=== PATIENT | male | born 1960 | race Hispanic/Latino ===

== ENCOUNTER 2021-03-30 14:07 | Inpatient (IN) | payer BC, OTHER ==
[2021-03-30] MEDS ORDERED: NITROGLYCERIN 0.4 MG TAB SUBL SL ONE (14:19)
--- NOTE | 2021-03-30 14:21 | Emergency Department Report ---
ED Chest Pain HPI - General Stated Complaint: CHEST PAIN Time Seen by Provider: 03/30/21 14:19 - History of Present Illness Initial Comments: Patient presents by EMS secondary to chest pain. He is describing a substernal chest pain that is tight. He has associated shortness of breath with this. He states that he has been having intermittent episodes for the last couple of days, but today was worse and constant. EMS has administered aspirin and nitro with partial symptomatic improvement. There is no history of recent travel or trauma. He states that he has similar symptoms to this in 2003 when he required a cardiac stent. The only thing different from that time versus today was that his left arm was numb that time. He has no left arm numbness today. There is no recent travel or trauma. He has no pain or swelling in the extremities out of the ordinary. He has no cough or congestion. - Related Data Home Medications Medication Instructions Recorded Confirmed Last Taken Cyclobenzaprine HCl [FLEXERIL] 10 mg PO BID 02/22/13 06/19/13 06/19/13 09:00 Hydrocodone Bit/Acetaminophen 1 tab PO BID 02/22/13 06/20/13 06/19/13 09:00 [Lortab 10-500 mg] Multivitamin [Multi-Vitamin Daily] 1 tab PO QDAY 02/22/13 06/19/13 06/19/13 09:00 [place]-3/Dha/Epa/Fish Oil [Fish Oil 1,000 mg PO BID 02/22/13 06/19/13 02/22/13 Dr 500 mg Softgel] Sennosides/Docusate Sodium [Stool 100 mg PO BID 02/22/13 06/19/13 06/19/13 09:00 Softener-Stim Lax Tablet] Previous Rx's Medication Instructions Recorded Last Taken Type Clopidogrel Bisulfate [Plavix] 75 mg PO QPM #30 tablet 06/26/13 Unknown Rx Furosemide [Lasix] 20 mg PO DAILY #30 tablet 06/26/13 Unknown Rx Insulin Glargine,Hum.rec.anlog 50 unit SQ QHS #100 ml 06/26/13 Unknown Rx [Lantus VIAL] Insulin Regular, Human [HumuLIN R] 12 units SUB-Q ACHS #100 ml 06/26/13 Unknown Rx Potassium Chloride [K-Dur] 20 meq PO QDAY #30 tablet 06/26/13 Unknown Rx Ranitidine HCl [Zantac 75 MG TAB] 150 mg PO BID #30 tablet 06/26/13 Unknown Rx Rosuvastatin (Nf) [Crestor] 20 mg PO QPM #30 tablet 06/26/13 Unknown Rx carvediloL [Coreg] 6.25 tab PO BID #60 tablet 06/26/13 Unknown Rx lisinopriL [Zestril TAB] 5 mg PO QDAY #30 tablet 06/26/13 Unknown Rx Allergies Allergy/AdvReac Type Severity Reaction Status Date / Time No Known Allergies Allergy Verified 02/22/13 21:48 Heart Score - HEART Score History: Moderately suspicious EKG: Normal Age: 45-65 Risk factors: > 3 risk factors or hx of atherosclerotic disease Troponin: 1-3x normal limit HEART Score: 5 - EKG Read Time Time EKG Completed: 14:36 EKG Read Time: 14:38 ED Review of Systems ROS: Stated complaint: CHEST PAIN Other details as noted in HPI Comment: All other systems reviewed and negative Constitutional: denies: fever Eyes: denies: eye pain ENT: denies: throat pain Respiratory: denies: cough Cardiovascular: as per HPI Endocrine: denies: unexplained weight loss Gastrointestinal: denies: abdominal pain Genitourinary: denies: dysuria Musculoskeletal: denies: back pain Skin: denies: rash Neurological: denies: headache Hematological/Lymphatic: denies: easy bruising ED Past Medical Hx - Past Medical History Hx Hypertension: Yes Hx Heart Attack/AMI: Yes Hx Congestive Heart Failure: No Hx Diabetes: Yes Hx Deep Vein Thrombosis: (Uncertain) Hx Arthritis: Yes Hx Asthma: No Hx COPD: No Hx HIV: No - Surgical History Hx Pacemaker: No Hx Internal Defibrillator: No Additional Surgical History: fatty tumor removed - Family History Family history: hypertension - Social History Smoking Status: Never Smoker - Medications Home Medications: Home Medications Medication Instructions Recorded Confirmed Last Taken Type Cyclobenzaprine HCl [FLEXERIL] 10 mg PO BID 02/22/13 06/19/13 06/19/13 09:00 History Hydrocodone Bit/Acetaminophen 1 tab PO BID 02/22/13 06/20/13 06/19/13 09:00 History [Lortab 10-500 mg] Multivitamin [Multi-Vitamin Daily] 1 tab PO QDAY 02/22/13 06/19/13 06/19/13 09:00 History [place]-3/Dha/Epa/Fish Oil [Fish Oil 1,000 mg PO BID 02/22/13 06/19/13 02/22/[address] 500 mg Softgel] Sennosides/Docusate Sodium [Stool 100 mg PO BID 02/22/13 06/19/13 06/19/13 09:00 History Softener-Stim Lax Tablet] Clopidogrel Bisulfate [Plavix] 75 mg PO QPM #30 tablet 06/26/13 Unknown Rx Furosemide [Lasix] 20 mg PO DAILY #30 tablet 06/26/13 Unknown Rx Insulin Glargine,Hum.rec.anlog 50 unit SQ QHS #100 ml 06/26/13 Unknown Rx [Lantus VIAL] Insulin Regular, Human [HumuLIN R] 12 units SUB-Q ACHS #100 ml 06/26/13 Unknown Rx Potassium Chloride [K-Dur] 20 meq PO QDAY #30 tablet 06/26/13 Unknown Rx Ranitidine HCl [Zantac 75 MG TAB] 150 mg PO BID #30 tablet 06/26/13 Unknown Rx Rosuvastatin (Nf) [Crestor] 20 mg PO QPM #30 tablet 06/26/13 Unknown Rx carvediloL [Coreg] 6.25 tab PO BID #60 tablet 06/26/13 Unknown Rx lisinopriL [Zestril TAB] 5 mg PO QDAY #30 tablet 06/26/13 Unknown Rx ED Physical Exam - General Limitations: No Limitations, Other (Pulse ox noted and normal by EMS) General appearance: alert, in no apparent distress, obese - Head Head exam: Present: atraumatic, normocephalic - Eye Eye exam: Present: normal appearance, EOMI - ENT ENT exam: Present: normal orophraynx, normal external ear exam - Neck Neck exam: Present: normal inspection. Absent: meningismus - Respiratory Respiratory exam: Present: normal lung sounds bilaterally. Absent: respiratory distress - Cardiovascular Cardiovascular Exam: Present: regular rate, normal rhythm - GI/Abdominal GI/Abdominal exam: Present: soft. Absent: distended, tenderness - Extremities Exam Extremities exam: Present: normal capillary refill, pedal edema (3+ bilateral). Absent: calf tenderness - Back Exam Back exam: Absent: CVA tenderness (R), CVA tenderness (L) - Neurological Exam Neurological exam: Present: alert, oriented X3, CN II-XII intact. Absent: motor sensory deficit - Psychiatric Psychiatric exam: Present: normal affect, normal mood - Skin Skin exam: Present: warm, dry ED Course Vital Signs 03/30/21 03/30/21 03/30/21 15:04 15:29 15:32 Temperature 98.4 F Pulse Rate 65 67 67 Respiratory 17 20 Rate Blood Pressure 176/86 Blood Pressure 150/79 176/86 [Right] O2 Sat by Pulse 99 99 Oximetry 03/30/21 03/30/21 16:59 17:44 Temperature Pulse Rate 70 78 Respiratory 18 16 Rate Blood Pressure 147/77 Blood Pressure 137/70 [Right] O2 Sat by Pulse 99 100 Oximetry - Reevaluation(s) Reevaluation #1: 03/30/21 14:21 EMS was met. Labs and chest x-ray were ordered. EKG was ordered. Old records noted. Reevaluation #2: 03/30/21 18:28 Dr. Burgess accepts the patient for admission. АНДРЕЙ score - Андрей Score Age > 65: (0) No Aspirin use within the Past 7 Days: (1) Yes 3 or more CAD Risk Factors: (1) Yes 2 or more Angina events in past 24 hrs: (1) Yes Known CAD with more than 50% Stenosis: (0) No Elevated Cardiac Markers: (1) Yes ST Deviation Greater than 0.5mm: (0) No АНДРЕЙ Score: 4 ED Medical Decision Making - Lab Data Result diagrams: 03/30/21 14:47 03/30/21 14:47 Rhythm strip: Normal sinus rhythm without ectopy. Monitor observe 10 seconds. - EKG Data -: EKG Interpreted by Ms - EKG Data 03/30/21 18:29 1436-EKG shows normal sinus rhythm at 70. QRS is normal at 99. QT corrected is normal at 442. There is artifact noted. Patient has no ST elevation to suggest STEMI. There is no ST depression suggestive of ischemia. There is no old EKG for comparison. 1652-EKG shows normal sinus rhythm at 66. Intervals are normal including a QRS of 95 and a QT corrected of 1-30. Patient has no ST or T wave changes. There is ST elevation suggestive of STEMI. There is no ST depression suggestive of ischemia. Artifact is improved compared to prior EKG. There is no change from EKG done recently. - Radiology Data Radiology results: report reviewed - Medical Decision Making Patient presents by ambulance secondary to chest pain or shortness of breath. Clinically, he has symptoms that are concerning for coronavirus given his x-ray findings. There is no elevation in BNP to suggest heart failure. He does have elevated troponin which could be related to COVID and a troponin leak and heart strain. This could also be related to pulmonary embolism. CT angiogram has be en ordered. Patient will be treated empirically for coronavirus. He did get aspirin given the elevated troponin. He has not had chest pain relief with nitro and I do not believe clinically this represents ACS. Critical Care Time: No Critical care attestation.: If time is entered above; I have spent that time in minutes in the direct care of this critically ill patient, excluding procedure time. ED Disposition Clinical Impression: Chest pain, precordial, Elevated troponin, Suspected COVID-19 virus infection Leukocytosis Qualifiers: Leukocytosis type: unspecified Qualified Code(s): D72.829 - Elevated white blood cell count, unspecified Disposition: 09 ADMITTED INPATIENT Is pt being admited?: Yes Condition: Stable Instructions: Nonspecific Chest Pain, Adult
[2021-03-30 15:13] LABS: Basophils # (Auto) 0.1 K/mm3 (0.0-0.1); Basophils % (Auto) 0.4 % (0.0-1.8); Eosinophils # (Auto) 0.1 K/mm3 (0.0-0.4); Eosinophils % (Auto) 0.4 % (0.0-4.3); Hematocrit 50.7 % (35.5-45.6); Hemoglobin 16.4 gm/dl (11.8-15.2); Lymphocytes # (Auto) 1.3 K/mm3 (1.2-5.4); Lymphocytes % (Auto) 8.7 % (13.4-35.0); Mean Corpuscular HGB Conc 32 % (32-34); Mean Corpuscular Volume 85 fl (84-94); Monocytes # (Auto) 0.9 K/mm3 (0.0-0.8); Platelet Count 277 K/mm3 (140-440); Red Blood Count 5.96 M/mm3 (3.65-5.03)
--- NOTE | 2021-03-30 15:52 | XRay Report ---
CHEST 2 VIEWS INDICATION / CLINICAL INFORMATION: Chest pain. COMPARISON: One view of the chest from 06/19/2013 FINDINGS: SUPPORT DEVICES: None. HEART / MEDIASTINUM: No significant abnormality. LUNGS / PLEURA: There are generalized bilateral pulmonary opacities. No significant pleural effusion. No pneumothorax. ADDITIONAL FINDINGS: No significant additional findings. IMPRESSION: Bilateral pulmonary opacities could represent edema or pneumonia. Signer Name: Kvein Valencia MD Signed: 03/30/2021 3:48 PM Workstation Name: [id number]
[2021-03-30 16:28] LABS: BUN/Creatinine Ratio 16; Blood Urea Nitrogen 14 mg/dL (9-20); Calcium 9.9 mg/dL (8.4-10.2); Hemolysis Index 11
[2021-03-30 18:02] LABS: C-Reactive Protein 0.8 mg/dL (0.00-1.30)
[2021-03-30] MEDS ORDERED: fentaNYL 100 MCG/2 ML INJ IV ONE (18:22)
[2021-03-30] MEDS ORDERED: ASPIRIN 81 MG TAB CHEW PO ONE (18:22)
--- NOTE | 2021-03-30 18:27 | History and Physical Report ---
History of Present Illness Chief complaint: My chest hurts and I do not feel good History of present illness: 60 YO Male with Obesity Hypoventilation Syndrome, DM, HTN, HLD, MD, OA Metabolic Syndrome presents to ED for evaluation. Patient reports "my chest is hurting and I do not feel good". Patient states that he has experienced chest pain over the past 2 days with intermittent but persistently worsening symptoms over the same timeframe. Patient states that pain is 5/10, intermittent but now has become more constant, substernal, worsened with exertion, relieved with rest, nonradiating, relieved with nitro. Associated with shortness of breath. Patient acknowledges decreased exercise tolerance, fatigue, malaise, diminished sense of smell, diminished sense of taste. EMS was notified and upon arrival the patient was found to be in distress and subsequently transported to [facility] for further care and evaluation of the aforementioned symptoms. The patient was seen and evaluated in the emergency department. All lab and imaging studies reviewed. Patient found to have laboratory findings consistent with NSTEMI and was initiated on therapeutic anticoagulation and admitted to [facility]. Chest x-ray revealed bilateral pneumonia complicated by sepsis. Patient admitted to [facility] and initiated on sepsis protocol as well as pneumonia protocol and coronavirus protocol. Prior admission on June 19, 2013 reviewed. All medication listed at time of admission has been reconciled. Advanced care planning conducted in ED. Past History Past Medical History: acute MD, arthritis, diabetes, hypertension, hyperlipidemia Past Surgical History: Other (Fatty tumor excision) Social history: , lives with family. denies: smoking, alcohol abuse, prescription drug abuse Family history: diabetes, hypertension Medications and Allergies Allergies Allergy/AdvReac Type Severity Reaction Status Date / Time No Known Allergies Allergy Verified 02/22/13 21:48 Home Medications Medication Instructions Recorded Confirmed Last Taken Type Cyclobenzaprine HCl [FLEXERIL] 10 mg PO BID 02/22/13 06/19/13 06/19/13 09:00 History Hydrocodone Bit/Acetaminophen 1 tab PO BID 02/22/13 06/20/13 06/19/13 09:00 History [Lortab 10-500 mg] Multivitamin [Multi-Vitamin Daily] 1 tab PO QDAY 02/22/13 06/19/13 06/19/13 09:00 History [place]-3/Dha/Epa/Fish Oil [Fish Oil 1,000 mg PO BID 1206/19/13 02/22/[address] 500 mg Softgel] Sennosides/Docusate Sodium [Stool 100 mg PO BID 02/22/13 06/19/13 06/19/13 09:00 History Softener-Stim Lax Tablet] Clopidogrel Bisulfate [Plavix] 75 mg PO QPM #30 tablet 06/26/13 Unknown Rx Furosemide [Lasix] 20 mg PO DAILY #30 tablet 06/26/13 Unknown Rx Insulin Glargine,Hum.rec.anlog 50 unit SQ QHS #100 ml 06/26/13 Unknown Rx [Lantus VIAL] Insulin Regular, Human [HumuLIN R] 12 units SUB-Q ACHS #100 ml 06/26/13 Unknown Rx Potassium Chloride [K-Dur] 20 meq PO QDAY #30 tablet 06/26/13 Unknown Rx Ranitidine HCl [Zantac 75 MG TAB] 150 mg PO BID #30 tablet 06/26/13 Unknown Rx Rosuvastatin (Nf) [Crestor] 20 mg PO QPM #30 tablet 06/26/13 Unknown Rx carvediloL [Coreg] 6.25 tab PO BID #60 tablet 06/26/13 Unknown Rx lisinopriL [Zestril TAB] 5 mg PO QDAY #30 tablet 06/26/13 Unknown Rx Review of Systems Constitutional: fatigue, weakness, malaise, lethargy, no fever Ears, nose, mouth and throat: no ear pain, no ear discharge, no tinnitis, no decreased hearing, no nose pain Cardiovascular: chest pain, shortness of breath Respiratory: no cough, no cough with sputum, no excessive sputum Gastrointestinal: no abdominal pain, no nausea, no vomiting, no diarrhea Genitourinary Male: no hematuria, no flank pain, no discharge, no urinary frequency, no urinary hesitancy Rectal: no pain, no incontinence, no bleeding Musculoskeletal: no neck stiffness, no neck pain, no shooting arm pain Integumentary: no rash, no pruritis, no sores, no wounds, no jaundice Neurological: no head injury, no paralysis, no weakness, no numbness Psychiatric: no anxiety, no memory loss, no change in sleep habits, no insomnia, no change in appetite Endocrine: no cold intolerance, no polyphagia, no polydipsia, no polyuria Hematologic/Lymphatic: no easy bruising, no easy bleeding Allergic/Immunologic: no urticaria, no allergic rhinitis Exam - Constitutional Vitals: Temp Pulse Resp BP Pulse Ox 98.4 F 78 16 137/70 100 03/30/21 15:04 03/30/21 17:44 03/30/21 17:44 03/30/21 17:44 03/30/21 17:44 General appearance: Present: mild distress, obese - EENT Eyes: Present: PERRL ENT: hearing intact, clear oral mucosa - Neck Neck: Present: supple, normal ROM - Respiratory Respiratory effort: normal, labored, accessory muscle use Respiratory: bilateral: diminished, rhonchi - Cardiovascular Heart Sounds: Present: S1 & S2. Absent: rub, click - Extremities Extremities: pulses symmetrical, No edema Peripheral Pulses: within normal limits - Abdominal General gastrointestinal: Present: soft, non-tender, non-distended, normal bowel sounds Male genitourinary: Present: normal - Integumentary Integumentary: Present: clear, warm, dry - Musculoskeletal Musculoskeletal: strength equal bilaterally, generalized weakness - Psychiatric Psychiatric: appropriate mood/affect, intact judgment & insight - Neurologic Neurologic: CNII-XII intact, moves all extremities HEART Score - HEART Score Age: 45-65 Risk factors: > 3 risk factors or hx of atherosclerotic disease Troponin: Troponin T 0.140 ng/mL (0.00-0.029) H* D 03/30/21 17:15 Results - Labs CBC & Chem 7: 03/30/21 14:47 03/30/21 14:47 Labs: Abnormal lab results 03/30/21 03/30/21 03/30/21 Range/Units 14:47 14:47 17:15 WBC 14.8 H (4.5-11.0) K/mm3 RBC 5.96 H (3.65-5.03) M/mm3 Hgb 16.4 H (11.8-15.2) gm/dl Hct 50.7 H (35.5-45.6) % MCH 27 L (28-32) pg Lymph % (Auto) 8.7 L (13.4-35.0) % Pope # (Auto) 0.9 H (0.0-0.8) K/mm3 Seg Neutrophils % 84.5 H (40.0-70.0) % Seg Neutrophils # 12.5 H (1.8-7.7) K/mm3 Sodium 135 L (137-145) mmol/L Chloride 97.9 L (98-107) mmol/L Carbon Dioxide 20 L (22-30) mmol/L Glucose 171 H (75-100) mg/dL Ferritin (30.0-300.0) ng/mL Lactate Dehydrogenase (91-180) units/L Troponin T 0.095 H 0.140 H* D (0.00-0.029) ng/mL 03/30/21 03/30/21 Range/Units 17:15 17:15 WBC (4.5-11.0) K/mm3 RBC (3.65-5.03) M/mm3 Hgb (11.8-15.2) gm/dl Hct (35.5-45.6) % MCH (28-32) pg Lymph % (Auto) (13.4-35.0) % Pope # (Auto) (0.0-0.8) K/mm3 Seg Neutrophils % (40.0-70.0) % Seg Neutrophils # (1.8-7.7) K/mm3 Sodium (137-145) mmol/L Chloride (98-107) mmol/L Carbon Dioxide (22-30) mmol/L Glucose (75-100) mg/dL Ferritin 690.4 H (30.0-300.0) ng/mL Lactate Dehydrogenase 190 H (91-180) units/L Troponin T (0.00-0.029) ng/mL Assessment and Plan - Patient Problems (1) Sepsis Current Visit: Yes Status: Acute Plan to address problem: Sepsis protocol: Chest x-ray, CBC, CMP, urinalysis, IV antibiotic therapy, serial lactic acid level, IV fluid resuscitation therapy, maintain mean arterial pressure greater than equal to 65. (2) NSTEMI (non-ST elevated myocardial infarction) Current Visit: Yes Status: Acute Plan to address problem: ACS protocol: Serial cardiac enzymes, EKG, telemetry, therapeutic Lovenox, cardiology team consulted, telemetry monitoring. (3) Diastolic CHF Current Visit: Yes Status: Acute Qualifiers: Heart failure chronicity: acute Qualified Code(s): I50.31 - Acute diastolic (congestive) heart failure Plan to address problem: Blood pressure control, thyroid panel, magnesium level, echocardiogram ordered and pending at time of admission, BNP, afterload reduction. (4) Pneumonia Current Visit: Yes Status: Acute Plan to address problem: Pneumonia protocol: Chest x-ray, CBC, CMP, supplemental oxygen, nebulizer therapy, IV antibiotic therapy, pulmonary toilet, blood culture. (5) Suspected 2019 novel coronavirus infection Current Visit: Yes Status: Acute Plan to address problem: Coronavirus protocol: Supplemental oxygen, IV antibiotic therapy, IV steroid therapy, vitamin C therapy, vitamin C therapy, zinc therapy, therapeutic Lovenox, pulmonary toilet. Prone positioning while in bed as per staff capability. (6) Obesity hypoventilation syndrome Current Visit: Yes Status: Acute Plan to address problem: Balanced diet, increase physical activity at discharge, outpatient pulmonary follow-up for sleep study. CPAP nightly. (7) DVT prophylaxis Current Visit: Yes Status: Acute Plan to address problem: SCD to bilateral lower extremities while in bed, therapeutic anticoagulation. (8) Advance care planning Current Visit: Yes Status: Acute Plan to address problem: Disease education conducted, care plan discussed, diagnosis discussed, prognosis discussed, patient is full code. Patient acknowledges understanding and agreement with care plan, +30 minutes.
[2021-03-30] MEDS ORDERED: oxyCODONE /ACETAMINOPHEN 5-325MG TAB PO PRN (18:29)
[2021-03-30] MEDS ORDERED: ONDANSETRON 4 MG/2 ML INJ IV PRN (18:29)
[2021-03-30] MEDS ORDERED: ACETAMINOPHEN 325 MG TAB PO PRN ×2 (18:29→18:33)
[2021-03-30] MEDS ORDERED: traMADol 50 MG TAB PO PRN (18:33)
[2021-03-30] MEDS ORDERED: ENOXAPARIN 100 MG/1 ML INJ SUB-Q SCH (18:35)
[2021-03-30 18:47] LABS: Chol/HDL Ratio 5.41 %
[2021-03-30] MEDS: cefTRIAXone/NS 2 GM/100 ML 2 GM/100 ML BAG IV SCH (20:02)
[2021-03-30] MEDS: AZITHROMYCIN/NS 500 MG/250 ML 500 MG/250 ML BAG IV SCH (20:16)
[2021-03-30 20:53] LABS: BUN/Creatinine Ratio 16; Blood Urea Nitrogen 13 mg/dL (9-20); Calcium 9.9 mg/dL (8.4-10.2); Hemolysis Index 53
[2021-03-30 20:56] LABS: C-Reactive Protein 0.8 mg/dL (0.00-1.30)
[2021-03-30] MEDS: MORPHINE 4 MG/1 ML INJ IV PRN (21:55)
[2021-03-30] MEDS: carvediloL 6.25 MG TAB PO SCH (22:00)
[2021-03-30] MEDS ORDERED: RANITIDINE HCL 75 MG PO SCH (22:00)
[2021-03-30] MEDS: FAMOTIDINE 20 MG TAB PO SCH (22:00)
[2021-03-30] MEDS: SENNOSIDES/DOCUSATE SODIUM 8.6/50 MG TAB PO SCH (22:06)
[2021-03-30] MEDS: CYCLOBENZAPRINE 10 MG TAB PO SCH (22:10)
--- NOTE | 2021-03-30 22:14 | Cat Scan Report ---
CTA CHEST WITH CONTRAST INDICATION / CLINICAL INFORMATION: Chest pain, elevated Troponin, probable Covid-19. TECHNIQUE: Axial CT images were obtained through the chest after injection of IV contrast. 3 plane DE P and/or 3D reconstructions were produced. All CT scans at this location are performed using CT dose reduction for ALARA by means of automated exposure control. COMPARISON: Radiograph earlier same day. FINDINGS: PULMONARY ARTERIES: No pulmonary emboli. THORACIC AORTA: No significant abnormality. HEART: No significant abnormality. CORONARY ARTERY CALCIFICATION: Multivessel MEDIASTINUM / JUAN DANIEL: No significant abnormality. PLEURA: No pleural effusion. No pneumothorax. LUNGS: Mild patchy opacities involving the posterior aspects of the bilateral upper lobes. ADDITIONAL FINDINGS: None. UPPER ABDOMEN: No acute findings. SKELETAL STRUCTURES: No significant osseous abnormality. IMPRESSION: 1. No CT evidence for pulmonary embolism. 2. Mild patchy groundglass opacities involving the posterior bilateral upper lobes, could reflect ea rly pneumonia. Signer Name: Don Resendez MD Signed: 03/30/2021 10:09 PM Workstation Name: [id number]
[2021-03-31] MEDS: ENOXAPARIN 80 MG/0.8 ML INJ SUB-Q SCH ×2 (00:22→10:15)
[2021-03-31] MEDS: MORPHINE 4 MG/1 ML INJ IV PRN (00:55)
[2021-03-31] MEDS ORDERED: MORPHINE 2 MG/1 ML INJ IV ONE (01:43)
[2021-03-31] MEDS ORDERED: ALUM-MAG HYDROXIDE-SIMETHICONE 200-200-20MG/5ML ORAL LIQD 30 ML PO ONE (01:46)
[2021-03-31 05:40] LABS: Basophils # (Auto) 0.1 K/mm3 (0.0-0.1); Basophils % (Auto) 0.6 % (0.0-1.8); Eosinophils # (Auto) 0.1 K/mm3 (0.0-0.4); Eosinophils % (Auto) 0.4 % (0.0-4.3); Hematocrit 46.1 % (35.5-45.6); Hemoglobin 14.8 gm/dl (11.8-15.2); Lymphocytes % (Auto) 13.3 % (13.4-35.0); Mean Corpuscular HGB Conc 32 % (32-34); Mean Corpuscular Volume 86 fl (84-94); Monocytes # (Auto) 1.6 K/mm3 (0.0-0.8); Monocytes % (Auto) 10.4 % (0.0-7.3); Platelet Count 273 K/mm3 (140-440); Red Blood Count 5.36 M/mm3 (3.65-5.03); Red Cell Distribution Width 14.3 % (13.2-15.2)
[2021-03-31 06:01] LABS: Alanine Aminotransferase 35 units/L (7-56); Albumin 3.7 g/dL (3.9-5); BUN/Creatinine Ratio 12; Blood Urea Nitrogen 11 mg/dL (9-20); Calcium 8.8 mg/dL (8.4-10.2); Hemolysis Index 60
[2021-03-31] MEDS ORDERED: FLU VACC QUAD 2021-22(6MOS UP)/PF 60 MCG/0.5 ML SYRINGE IM ONE (08:30)
[2021-03-31] MEDS ORDERED: SODIUM CHLORIDE 0.9% 500 ML IVPB IV PRN (08:39)
[2021-03-31] MEDS: MORPHINE 2 MG/1 ML INJ IV PRN ×3 (08:45→21:17)
[2021-03-31] MEDS: POTASSIUM CHLORIDE ER 20 MEQ TAB PO SCH (10:15)
[2021-03-31] MEDS: SENNOSIDES/DOCUSATE SODIUM 8.6/50 MG TAB PO SCH ×2 (10:15→21:16)
[2021-03-31] MEDS: CYCLOBENZAPRINE 10 MG TAB PO SCH ×2 (10:15→21:16)
[2021-03-31] MEDS: LISINOPRIL 5 MG TAB PO SCH (10:16)
[2021-03-31] MEDS: FAMOTIDINE 20 MG TAB PO SCH ×2 (10:16→21:16)
[2021-03-31] MEDS: carvediloL 6.25 MG TAB PO SCH ×2 (10:16→21:16)
[2021-03-31] MEDS ORDERED: PNEUMOCOCCAL 23 Valent 0.5 ML VIAL IM ONE (12:00)
[2021-03-31] MEDS ORDERED: HEPARIN 10,000 UNITS/10 ML VIAL IV PRN (12:30)
[2021-03-31] MEDS ORDERED: HEPARIN 10,000 UNITS/10 ML VIAL IV SCH (12:45)
[2021-03-31] MEDS ORDERED: HEPARIN/ 0.45% NACL DRIP 25,000 UNIT/500 ML BAG IV SCH (13:00)
[2021-03-31] MEDS ORDERED: NITROGLYCERIN DRIP 50 MG/250 ML BOTTLE IV SCH (13:00)
[2021-03-31] MEDS ORDERED: SODIUM CHLORIDE 0.9% 500 ML 500 ML IV SCH (13:00)
--- NOTE | 2021-03-31 14:41 | Progress Note ---
Assessment and Plan Assessment and plan: 60 YO Male with Obesity Hypoventilation Syndrome, DM, HTN, HLD, SC, OA Metabolic Syndrome presents to ED for evaluation. Patient reports "my chest is hurting and I do not feel good". Patient states that he has experienced chest pain over the past 2 days with intermittent but persistently worsening symptoms over the same timeframe. Patient states that pain is 5/10, intermittent but now has become more constant, substernal, worsened with exertion, relieved with rest, nonradiating, relieved with nitro. Associated with shortness of breath. Patient acknowledges decreased exercise tolerance, fatigue, malaise, diminished sense of smell, diminished sense of taste. EMS was notified and upon arrival the patient was found to be in distress and subsequently transported to [facility] for further care and evaluation of the aforementioned symptoms. The patient was seen and evaluated in the emergency department. All lab and imaging studies reviewed. Patient found to have laboratory findings consistent with NSTEMI and was initiated on therapeutic anticoagulation and admitted to [facility]. Chest x-ray revealed bilateral pneumonia complicated by sepsis. Patient admitted to [facility] and initiated on sepsis protocol as well as pneumonia protocol and coronavirus protocol. Prior admission on June 19, 2013 reviewed. All medication listed at time of admission has been reconciled. Advanced care planning conducted in ED. 03/31: Continue current management. Discussed with cardiology team patient will need to be ruled out for Covid prior to invasive procedure to evaluate for non- ST elevated SC. Patient reports that he had an SC few years ago was compliant with his aspirin although did miss 1 or 2 days in the recent weeks. He states that he was intolerable off statin therapy due to generalized body pain from the medication has not reported any at this time. For now continue appropriate goal-directed medical therapy. Clinically appears stable also did discuss with her [facility] physicians due to patient's current ongoing chest pain not stable for transfer. Will defer to cardiology if nitro drip will be initiated if patient's pain continues. No clear etiology for initial leukocytosis although continued could be secondary to initiated steroid therapy. Patient has no fever at this time, cultures remain negative (1) elevated leukocytosis possible sepsis Current Visit: Yes Status: Acute Plan to address problem: Sepsis protocol: Chest x-ray, CBC, CMP, urinalysis, IV antibiotic therapy, serial lactic acid level, IV fluid resuscitation therapy, maintain mean arterial pressure greater than equal to 65. (2) NSTEMI (non-ST elevated myocardial infarction) Current Visit: Yes Status: Acute Plan to address problem: ACS protocol: Serial cardiac enzymes, EKG, telemetry, therapeutic Lovenox, cardiology team consulted, telemetry monitoring. (3) Diastolic CHF Current Visit: Yes Status: Acute Qualifiers: Heart failure chronicity: acute Qualified Code(s): I50.31 - Acute diastolic (congestive) heart failure Plan to address problem: Blood pressure control, thyroid panel, magnesium level, echocardiogram ordered and pending at time of admission, BNP, afterload reduction. (4) Pneumonia Current Visit: Yes Status: Acute Plan to address problem: Pneumonia protocol: Chest x-ray, CBC, CMP, supplemental oxygen, nebulizer therapy, IV antibiotic therapy, pulmonary toilet, blood culture. (5) Suspected 2019 novel coronavirus infection Current Visit: Yes Status: Acute Plan to address problem: Coronavirus protocol: Supplemental oxygen, IV antibiotic therapy, IV steroid therapy, vitamin C therapy, vitamin C therapy, zinc therapy, therapeutic Lovenox, pulmonary toilet. Prone positioning while in bed as per staff capability. (6) Obesity hypoventilation syndrome Current Visit: Yes Status: Acute Plan to address problem: Balanced diet, increase physical activity at discharge, outpatient pulmonary follow-up for sleep study. CPAP nightly. (7) DVT prophylaxis Current Visit: Yes Status: Acute Plan to address problem: SCD to bilateral lower extremities while in bed, therapeutic anticoagulation. (8) Advance care planning Current Visit: Yes Status: Acute Plan to address problem: Disease education conducted, care plan discussed, diagnosis discussed, prognosis discussed, patient is full code. Patient acknowledges understanding and agreement with care plan, +30 minutes. History Interval history: Patient seen and examined no acute distress. Still with substernal chest pain described as 5/10 in intensity pressure-like. No reproducible no orthopnea or PND. Hospitalist Physical - Physical exam Narrative exam: VITAL SIGNS: Reviewed. GENERAL: The patient appears normally developed, morbidly obese vital signs as documented. HEAD: No signs of head trauma. EYES: Pupils are equal. Extraocular motions intact. EARS: Hearing grossly intact. MOUTH: Oropharynx is normal. NECK: No adenopathy, no JVD. CHEST: Chest with clear breath sounds bilaterally. No wheezes, rales, or rhonchi. CARDIAC: Regular rate and rhythm. S1 and S2, without murmurs, gallops, or rubs. VASCULAR: No Edema. Peripheral pulses normal and equal in all extremities. ABDOMEN: Soft, non tender and non distended. No rebound or guarding, and no masses palpated. Bowel Sounds normal. MUSCULOSKELETAL: Good range of motion of all major joints. Extremities without clubbing, cyanosis or edema. NEUROLOGIC EXAM: Alert and oriented x 3 No focal sensory or strength defic its. Speech normal. Follows commands. PSYCHIATRIC: Mood normal. SKIN: detail exam as documented in skin assessment - Constitutional Vitals: Temp Pulse Resp BP Pulse Ox 98.4 F 67 25 H 112/56 96 03/31/21 12:00 03/31/21 13:01 03/31/21 13:01 03/31/21 13:01 03/31/21 13:01 General appearance: Present: mild distress, obese HEART Score - HEART Score EKG: Normal Age: 45-65 Risk factors: > 3 risk factors or hx of atherosclerotic disease Troponin: Troponin T 0.174 ng/mL (0.00-0.029) H* 03/31/21 00:28 Troponin: 1-3x normal limit Results - Labs CBC & Chem 7: 03/31/21 05:06 03/31/21 05:06 Labs: Laboratory Last Values WBC 15.0 K/mm3 (4.5-11.0) H 03/31/21 05:06 RBC 5.36 M/mm3 (3.65-5.03) H 03/31/21 05:06 Hgb 14.8 gm/dl (11.8-15.2) 03/31/21 05:06 Hct 46.1 % (35.5-45.6) H 03/31/21 05:06 MCV 86 fl (84-94) 03/31/21 05:06 MCH 28 pg (28-32) 03/31/21 05:06 MCHC 32 % (32-34) 03/31/21 05:06 RDW 14.3 % (13.2-15.2) 03/31/21 05:06 Plt Count 273 K/mm3 (140-440) 03/31/21 05:06 Lymph % (Auto) 13.3 % (13.4-35.0) L 03/31/21 05:06 Holt % (Auto) 10.4 % (0.0-7.3) H 03/31/21 05:06 Eos % (Auto) 0.4 % (0.0-4.3) 03/31/21 05:06 Baso % (Auto) 0.6 % (0.0-1.8) 03/31/21 05:06 Lymph # (Auto) 2.0 K/mm3 (1.2-5.4) 03/31/21 05:06 Holt # (Auto) 1.6 K/mm3 (0.0-0.8) H 03/31/21 05:06 Eos # (Auto) 0.1 K/mm3 (0.0-0.4) 03/31/21 05:06 Baso # (Auto) 0.1 K/mm3 (0.0-0.1) 03/31/21 05:06 Seg Neutrophils % 75.3 % (40.0-70.0) H 03/31/21 05:06 Seg Neutrophils # 11.3 K/mm3 (1.8-7.7) H 03/31/21 05:06 D-Dimer 1698.70 ng/mlDDU (0-234) H 03/30/21 19:58 Sodium 140 mmol/L (137-145) D 03/31/21 05:06 Potassium 4.2 mmol/L (3.6-5.0) 03/31/21 05:06 Chloride 102.7 mmol/L (98-107) 03/31/21 05:06 Carbon Dioxide 21 mmol/L (22-30) L 03/31/21 05:06 Anion Gap 21 mmol/L 03/31/21 05:06 BUN 11 mg/dL (9-20) 03/31/21 05:06 Creatinine 0.9 mg/dL (0.8-1.3) 03/31/21 05:06 Estimated GFR > 60 ml/min 03/31/21 05:06 BUN/Creatinine Ratio 12 % 03/31/21 05:06 Glucose 141 mg/dL (75-100) H 03/31/21 05:06 POC Glucose 128 mg/dL (70-105) H 03/31/21 11:23 Calcium 8.8 mg/dL (8.4-10.2) 03/31/21 05:06 Ferritin 690.4 ng/mL (30.0-300.0) H 03/30/21 17:15 Total Bilirubin 0.50 mg/dL (0.1-1.2) 03/31/21 05:06 AST 54 units/L (5-40) H 03/31/21 05:06 ALT 35 units/L (7-56) 03/31/21 05:06 Alkaline Phosphatase 80 units/L (35-129) 03/31/21 05:06 Lactate Dehydrogenase 197 units/L (91-180) H 03/30/21 19:58 Troponin T 0.174 ng/mL (0.00-0.029) H* 03/31/21 00:28 C-Reactive Protein 0.80 mg/dL (0.00-1.30) 03/30/21 19:58 NT-Pro-B Natriuret Pep 438.2 pg/mL (0-900) 03/30/21 17:15 Total Protein 6.8 g/dL (6.3-8.2) 03/31/21 05:06 Albumin 3.7 g/dL (3.9-5) L 03/31/21 05:06 Albumin/Globulin Ratio 1.2 % 03/31/21 05:06 Triglycerides 133 mg/dL (2-149) 03/30/21 17:15 Cholesterol 211 mg/dL (50-199) H 03/30/21 17:15 LDL Cholesterol Direct 164 mg/dL (50-130) H 03/30/21 17:15 HDL Cholesterol 39 mg/dL (40-59) L 03/30/21 17:15 Cholesterol/HDL Ratio 5.41 % 03/30/21 17:15 Coronavirus (PCR) Negative (Negative) 03/31/21 08:40 Perez/IV: Voiding Method Toilet Active Medications - Current Medications Current Medications: Generic Name Dose Route Start Last Admin Trade Name Freq PRN Reason Stop Dose Admin Acetaminophen 650 mg 03/30/21 18:29 Acetaminophen 325 Mg Tab PO Q4H PRN Pain MILD(1-3)/Fever >100.5/CALHOUN Atorvastatin Calcium 40 mg 03/30/21 22:00 03/30/21 22:05 Atorvastatin 40 Mg Tab PO 40 mg QHS ALEE Administration Carvedilol 6.25 mg 03/30/21 22:00 03/31/21 10:16 Carvedilol 6.25 Mg Tab PO 6.25 mg BID ALEE Administration Clopidogrel Bisulfate 75 mg 03/31/21 18:00 Clopidogrel 75 Mg Tab PO QPM [facility] Cyclobenzaprine HCl 10 mg 03/30/21 22:00 03/31/21 10:15 Cyclobenzaprine 10 Mg Tab PO 10 mg BID ALEE Administration Famotidine 20 mg 03/30/21 22:00 03/31/21 10:16 Famotidine 20 Mg Tab PO 20 mg BID [facility] Administration Azithromycin 500 mg in 250 mls @ 250 mls/hr 03/30/21 20:00 03/30/21 20:16 Zithromax/Ns IV 250 mls/hr Q24H [facility] Administration Protocol Ceftriaxone Sodium 2 gm in 100 mls @ 200 mls/hr 03/30/21 20:00 03/30/21 20:02 Rocephin/Ns 2 Gm/100 Ml IV 200 mls/hr Q24H [facility] Administration Protocol Heparin Sodium/Sodium Chloride 25,000 unit in 500 mls @ 20 mls/hr 03/31/21 13:00 Heparin/ 0.45% Nacl-25,000 Unit/500 Ml IV TITRATE ALEE Protocol 1,000 UNITS/HR Sodium Chloride 500 mls @ 50 mls/hr 03/31/21 13:00 Nacl 0.9% 500 Ml IV 03/31/21 22:59 DIRECT ALEE Lisinopril 5 mg 03/31/21 10:00 03/31/21 10:16 Lisinopril 5 Mg Tab PO 5 mg QDAY [facility] Administration Morphine Sulfate 2 mg 03/31/21 01:00 03/31/21 08:45 Morphine 2 Mg/1 Ml Inj IV 2 mg Q4H PRN Administration Pain , Severe (7-10) Ondansetron HCl 4 mg 03/30/21 18:29 03/31/21 00:19 Ondansetron 4 Mg/2 Ml Inj IV 4 mg Q8H PRN Administration Nausea And Vomiting Oxycodone/Acetaminophen 1 tab 03/30/21 18:29 Oxycodone /Acetaminophen 5-325mg Tab PO Q8H PRN Pain, Moderate (4-6) Potassium Chloride 20 meq 03/31/21 10:00 03/31/21 10:15 Potassium Chloride Er 20 Meq Tab PO 20 meq QDAY [facility] Administration Senna/Docusate Sodium 1 tab 03/30/21 22:00 03/31/21 10:15 Sennosides/Docusate Sodium 8.6/50 Mg Tab PO 1 tab BID ALEE Administration Sodium Chloride 10 ml 03/30/21 22:00 03/31/21 10:17 Sodium Chloride 0.9% 10 Ml Flush Syringe IV 10 ml BID ALEE Administration Sodium Chloride 10 ml 03/30/21 18:33 Sodium Chloride 0.9% 10 Ml Flush Syringe IV PRN PRN LINE FLUSH Sodium Chloride 10 ml 03/31/21 08:39 Sodium Chloride 0.9% 500 Ml Ivpb IV PRN PRN FLUSH Tramadol HCl 50 mg 03/30/21 18:33 Tramadol 50 Mg Tab PO Q6H PRN Pain, Moderate (4-6)
--- NOTE | 2021-03-31 15:56 | Consultation ---
History of Present Illness Consult date: 03/31/21 Requesting physician: DILIP CHAVARRIA Consult reason: chest pain History of present illness: Patient is [id number]-year-old male past medical history of coronary artery disease s/p NM, hypertension, diabetes, hyperlipidemia, obesity presents with a complaint of chest pain x2-day prior to admission. Patient reports that he has had intermittent chest pain for some time however over the last 2 days it has become progressively worse and constant. He describes the pain as a pressure located in the center of his chest. He also associates the pressure with an increased heart rate and slight shortness of breath. He states pain is worsened with exertion and that the only relief he has come from pain meds. Patient does admit that he is not always compliant with his outpatient cardiac medication regimen. Patient denies nausea vomiting, diaphoresis, or lightheadedness. Of note chest x-ray shows pneumonia. Patient is not vaccinated and does report being around Covid positive people. Patient is previously unknown to our practice however patient does follow with [facility]. Cardiology is consulted for c hest pain. Past History Past Medical History: acute NM, arthritis, CAD, diabetes, hypertension, hyperlipidemia Past Surgical History: Other (Fatty tumor excision) Social history: , lives with family. denies: smoking, alcohol abuse, prescription drug abuse Family history: diabetes, hypertension Medications and Allergies Allergies Allergy/AdvReac Type Severity Reaction Status Date / Time No Known Allergies Allergy Verified 03/31/21 07:38 Home Medications Medication Instructions Recorded Confirmed Last Taken Type Aspirin [Aspirin BABY CHEW TAB] 81 mg PO QDAY 03/31/21 03/31/21 03/29/21 History Citalopram [celeXA] 40 mg PO QDAY 03/31/21 03/31/21 03/29/21 History Ibuprofen [Motrin 800 MG tab] 800 mg PO PRN PRN 03/31/21 03/31/21 Unknown History Metoprolol [Lopressor] 25 mg PO BID 03/31/21 03/31/21 03/29/21 History Tamsulosin [Flomax] 0.4 mg PO QDAY 03/31/21 03/31/21 03/29/21 History lisinopriL [Lisinopril] 20 mg PO QDAY 03/31/21 03/31/21 03/29/21 History metFORMIN [Glucophage] 500 mg PO QDAY 03/31/21 03/31/21 03/29/21 History Active Meds: Active Medications Acetaminophen (Acetaminophen 325 Mg Tab) 650 mg PO Q4H PRN PRN Reason: Pain MILD(1-3)/Fever >100.5/[place] Atorvastatin Calcium (Atorvastatin 40 Mg Tab) 40 mg PO QHS [facility] Last Admin: 03/30/21 22:05 Dose: 40 mg Carvedilol (Carvedilol 6.25 Mg Tab) 6.25 mg PO BID [facility] Last Admin: 03/31/21 10:16 Dose: 6.25 mg Clopidogrel Bisulfate (Clopidogrel 75 Mg Tab) 75 mg PO QPM [facility] Cyclobenzaprine HCl (Cyclobenzaprine 10 Mg Tab) 10 mg PO BID [facility] Last Admin: 03/31/21 10:15 Dose: 10 mg Famotidine (Famotidine 20 Mg Tab) 20 mg PO BID [facility] Last Admin: 03/31/21 10:16 Dose: 20 mg Azithromycin (Zithromax/Ns) 500 mg in 250 mls @ 250 mls/hr IV Q24H [facility]; Protocol Last Admin: 03/30/21 20:16 Dose: 250 mls/hr Ceftriaxone Sodium (Rocephin/Ns 2 Gm/100 Ml) 2 gm in 100 mls @ 200 mls/hr IV Q24H [facility]; Protocol Last Admin: 03/30/21 20:02 Dose: 200 mls/hr Heparin Sodium/Sodium Chloride (Heparin/ 0.45% Nacl-25,000 Unit/500 Ml) 25,000 unit in 500 mls @ 20 mls/hr IV TITRATE [facility]; Protocol Last Admin: 03/31/21 14:38 Dose: 1,000 units/hr, 20 mls/hr Sodium Chloride (Nacl 0.9% 500 Ml) 500 mls @ 50 mls/hr IV DIRECT [facility] Stop: 03/31/21 22:59 Lisinopril (Lisinopril 5 Mg Tab) 5 mg PO QDAY [facility] Last Admin: 03/31/21 10:16 Dose: 5 mg Morphine Sulfate (Morphine 2 Mg/1 Ml Inj) 2 mg IV Q4H PRN PRN Reason: Pain , Severe (7-10) Last Admin: 03/31/21 08:45 Dose: 2 mg Ondansetron HCl (Ondansetron 4 Mg/2 Ml Inj) 4 mg IV Q8H PRN PRN Reason: Nausea And Vomiting Last Admin: 03/31/21 00:19 Dose: 4 mg Oxycodone/Acetaminophen (Oxycodone /Acetaminophen 5-325mg Tab) 1 tab PO Q8H PRN PRN Reason: Pain, Moderate (4-6) Potassium Chloride (Potassium Chloride Er 20 Meq Tab) 20 meq PO QDAY [facility] Last Admin: 03/31/21 10:15 Dose: 20 meq Senna/Docusate Sodium (Sennosides/Docusate Sodium 8.6/50 Mg Tab) 1 tab PO BID [facility] Last Admin: 03/31/21 10:15 Dose: 1 tab Sodium Chloride (Sodium Chloride 0.9% 10 Ml Flush Syringe) 10 ml IV BID [facility] Last Admin: 03/31/21 10:17 Dose: 10 ml Sodium Chloride (Sodium Chloride 0.9% 10 Ml Flush Syringe) 10 ml IV PRN PRN PRN Reason: LINE FLUSH Sodium Chloride (Sodium Chloride 0.9% 500 Ml Ivpb) 10 ml IV PRN PRN PRN Reason: FLUSH Tramadol HCl (Tramadol 50 Mg Tab) 50 mg PO Q6H PRN PRN Reason: Pain, Moderate (4-6) Review of Systems Constitutional: no weight loss, no weight gain, no fever, no chills Ears, nose, mouth and throat: no nasal congestion, no nasal discharge, no sinus pressure, no sinus pain Cardiovascular: chest pain, rapid/irregular heart beat, shortness of breath, no syncope, no lightheadedness, no high blood pressure Respiratory: shortness of breath, dyspnea on exertion Gastrointestinal: no abdominal pain, no nausea, no vomiting, no diarrhea Musculoskeletal: no neck stiffness, no neck pain, no shooting arm pain Integumentary: no rash, no pruritis, no redness Neurological: no head injury, no transient paralysis, no paralysis, no weakness Psychiatric: no anxiety, no memory loss Endocrine: no cold intolerance, no heat intolerance, no polyphagia Hematologic/Lymphatic: no easy bruising, no easy bleeding Physical Examination Vital Signs Temp Pulse Resp BP Pulse Ox 98.4 F 65 17 150/79 99 03/30/21 15:04 03/30/21 15:04 03/30/21 15:04 03/30/21 15:04 03/30/21 15:04 General appearance: no acute distress HEENT: Positive: PERRL, Normocephaly Neck: Positive: trachea midline Cardiac: Positive: Reg Rate and Rhythm Lungs: Positive: Normal Breath Sounds Neuro: Positive: Grossly Intact Abdomen: Positive: Soft, Active Bowel Sounds Skin: Negative: Rash, Suspicious Lesions, Ulceration Extremities: Present: upper extr. pulses. Absent: edema Results 03/31/21 05:06 03/31/21 05:06 Cardiac Enzymes 03/30/21 03/30/21 03/31/21 Range/Units 17:15 19:58 05:06 AST 54 H (5-40) units/L Lactate Dehydrogenase 190 H 197 H (91-180) units/L Lipids 03/30/21 Range/Units 17:15 Triglycerides 133 (2-149) mg/dL Cholesterol 211 H (50-199) mg/dL HDL Cholesterol 39 L (40-59) mg/dL Cholesterol/HDL Ratio 5.41 % CBC 03/31/21 Range/Units 05:06 WBC 15.0 H (4.5-11.0) K/mm3 RBC 5.36 H (3.65-5.03) M/mm3 Hgb 14.8 (11.8-15.2) gm/dl Hct 46.1 H (35.5-45.6) % Plt Count 273 (140-440) K/mm3 Lymph # (Auto) 2.0 (1.2-5.4) K/mm3 [place] # (Auto) 1.6 H (0.0-0.8) K/mm3 Eos # (Auto) 0.1 (0.0-0.4) K/mm3 Baso # (Auto) 0.1 (0.0-0.1) K/mm3 Comprehensive Metabolic Panel 03/30/21 03/30/21 03/31/21 Range/Units 14:47 19:58 05:06 Sodium 135 L 132 L 140 D (137-145) mmol/L Potassium 4.0 4.4 4.2 (3.6-5.0) mmol/L Chloride 97.9 L 95.9 L 102.7 (98-107) mmol/L Carbon Dioxide 20 L 19 L 21 L (22-30) mmol/L BUN 14 13 11 (9-20) mg/dL Creatinine 0.9 0.8 0.9 (0.8-1.3) mg/dL Glucose 171 H 170 H 141 H (75-100) mg/dL Calcium 9.9 9.9 8.8 (8.4-10.2) mg/dL AST 54 H (5-40) units/L ALT 35 (7-56) units/L Alkaline Phosphatase 80 (35-129) units/L Total Protein 6.8 (6.3-8.2) g/dL Albumin 3.7 L (3.9-5) g/dL - Imaging and Cardiology Echo: pending Cardiac cath: pending EKG interpretations - Telemetry EKG Rhythm: Sinus Rhythm - EKG Sinus rhythms and dysrhythmias: sinus rhythm Repolarization changes or abnormalities: nonspecific abnormality, ST segment, and/or T wave Assessment and Plan Patient is [id number]-year-old male past medical history of coronary artery disease s/p NM, hypertension, diabetes, hyperlipidemia, obesity presents with a complaint of chest pain x2-day prior to admission NSTEMI PNA Leukocytosis HTN HLD Obesity Noncompliance Plan: EKG shows sinus rhythm rate 70 with nonspecific T abnormalities. No acute ischemic changes. Troponins noted to be elevated0.095->0.17 Initiate heparin drip Patient for cardiac cath in the a.m. N.p.o. after midnight Agree with Plavix, Lipitor 40 mg p.o. nightly Coreg 6.25 mg p.o. twice daily and lisinopril 5 mg p.o. daily Echo pending Patient seen in conjunction with Dr. Hurtado who agrees with this plan of care - Patient Problems (1) Chest pain, precordial Current Visit: Yes Status: Acute (2) Elevated troponin Current Visit: Yes Status: Acute (3) Leukocytosis Current Visit: Yes Status: Acute Qualifiers: Leukocytosis type: unspecified Qualified Code(s): D72.829 - Elevated white blood cell count, unspecified (4) NSTEMI (non-ST elevated myocardial infarction) Current Visit: Yes Status: Acute (5) Obesity hypoventilation syndrome Current Visit: Yes Status: Acute (6) CAD (coronary artery disease) Current Visit: No Status: Chronic (7) Diabetes mellitus type 2 in obese Onset Date: 06/19/13 Current Visit: No Status: Chronic (8) HLD (hyperlipidemia) Current Visit: No Status: Chronic (9) HTN (hypertension) Current Visit: No Status: Chronic (10) Obesities, morbid Onset Date: 06/20/13 Current Visit: No Status: Chronic
[2021-03-31] MEDS: CLOPIDOGREL 75 MG TAB PO SCH (17:26)
[2021-03-31] MEDS ORDERED: NON-FORMULARY EACH (Rosuvastatin (Nf) 20 MG Tablet) PO SCH (18:00)
[2021-03-31] MEDS: cefTRIAXone/NS 2 GM/100 ML 2 GM/100 ML BAG IV SCH (21:16)
[2021-03-31] MEDS: AZITHROMYCIN/NS 500 MG/250 ML 500 MG/250 ML BAG IV SCH (22:56)
[2021-04-01 04:37] LABS: INR 0.93 (0.87-1.13)
[2021-04-01 04:40] LABS: Basophils # (Auto) 0.1 K/mm3 (0.0-0.1); Basophils % (Auto) 0.9 % (0.0-1.8); Eosinophils # (Auto) 0.6 K/mm3 (0.0-0.4); Eosinophils % (Auto) 5.2 % (0.0-4.3); Hematocrit 43.5 % (35.5-45.6); Lymphocytes # (Auto) 2.6 K/mm3 (1.2-5.4); Lymphocytes % (Auto) 22.7 % (13.4-35.0); Mean Corpuscular HGB Conc 32 % (32-34); Mean Corpuscular Volume 86 fl (84-94); Monocytes # (Auto) 1.3 K/mm3 (0.0-0.8); Monocytes % (Auto) 11.8 % (0.0-7.3); Platelet Count 212 K/mm3 (140-440); Red Blood Count 5.08 M/mm3 (3.65-5.03); Red Cell Distribution Width 14.1 % (13.2-15.2)
[2021-04-01 04:43] LABS: Alanine Aminotransferase 40 units/L (7-56); Albumin 3.1 g/dL (3.9-5); BUN/Creatinine Ratio 13; Blood Urea Nitrogen 10 mg/dL (9-20); Calcium 8.2 mg/dL (8.4-10.2); Hemolysis Index 21
[2021-04-01] MEDS ORDERED: ATROPINE 0.1% (1 MG/10 ML) CARDIAC SYRINGE ONE (06:35)
[2021-04-01] MEDS: LIDOCAINE (2%) 20 MG/1 ML VIAL 20 ML MDV INFILTRATI ONE ×2 (07:18→07:48)
[2021-04-01] MEDS: fentaNYL 100 MCG/2 ML INJ ONE ×3 (07:18→08:20)
[2021-04-01] MEDS: MIDAZOLAM 2 MG/2 ML INJ ONE ×2 (07:18→07:47)
[2021-04-01] MEDS: HEPARIN 10,000 UNITS/10 ML VIAL ONE ×2 (07:19→07:49)
[2021-04-01] MEDS: VERAPAMIL 5 MG/2 ML INJ ONE ×2 (07:19→07:49)
[2021-04-01] MEDS: NITROGLYCERIN SYRINGE 3 ML ONE (07:20)
[2021-04-01] MEDS: SODIUM CHLORIDE 0.9% 500 ML 500 ML ONE ×2 (07:20→07:45)
[2021-04-01] MEDS: HEPARIN/NS 5000 UNIT/500ML 1,000 ML IR ONE ×2 (07:21→07:50)
[2021-04-01] MEDS ORDERED: SODIUM CHLORIDE 0.9% 50 ML ONE ×2 (07:55→08:11)
[2021-04-01] MEDS: BIVALIRUDIN 250 MG INJ IV ONE ×2 (08:17→12:24)
[2021-04-01] MEDS: INSULIN LISPRO 100 UNIT/ML SUB-Q SCH ×3 (08:18→21:24)
[2021-04-01] MEDS ORDERED: CLOPIDOGREL 300 MG TAB ONE (08:20)
[2021-04-01] MEDS ORDERED: ALUM-MAG HYDROXIDE-SIMETHICONE 200-200-20MG/5ML ORAL LIQD 30 ML ONE (08:23)
--- NOTE | 2021-04-01 08:25 | Progress Note ---
Assessment and Plan Assessment and plan: Assessment and plan: 60 YO Male with Obesity Hypoventilation Syndrome, DM, HTN, HLD, ND, OA Metabolic Syndrome presents to ED for evaluation. Patient reports "my chest is hurting and I do not feel good". Patient states that he has experienced chest pain over the past 2 days with intermittent but persistently worsening symptoms over the same timeframe. Patient states that pain is 5/10, intermittent but now has become more constant, substernal, worsened with exertion, relieved with rest, nonradiating, relieved with nitro. Associated with shortness of breath. Patient acknowledges decreased exercise tolerance, fatigue, malaise, diminished sense of smell, diminished sense of taste. EMS was notified and upon arrival the patient was found to be in distress and subsequently transported to [facility] for further care and evaluation of the aforementioned symptoms. The patient was seen and evaluated in the emergency department. All lab and imaging studies reviewed. Patient found to have laboratory findings consistent with NSTEMI and was initiated on therapeutic anticoagulation and admitted to [facility]. Chest x-ray revealed bilateral pneumonia complicated by sepsis. Patient admitted to [facility] and initiated on sepsis protocol as well as pneumonia protocol and coronavirus protocol. Prior admission on June 19, 2013 reviewed. All medication listed at time of admission has been reconciled. Advanced care planning conducted in ED. 03/31: Continue current management. Discussed with cardiology team patient will need to be ruled out for Covid prior to invasive procedure to evaluate for non- ST elevated ND. Patient reports that he had an ND few years ago was compliant with his aspirin although did miss 1 or 2 days in the recent weeks. He states that he was intolerable off statin therapy due to generalized body pain from the medication has not reported any at this time. For now continue appropriate goal-directed medical therapy. Clinically appears stable also did discuss with her [place] physicians due to patient's current ongoing chest pain not stable for transfer. Will defer to cardiology if nitro drip will be initiated if patient's pain continues. No clear etiology for initial leukocytosis although continued could be secondary to initiated steroid therapy. Patient has no fever at this time, cultures remain negative. 04/01: Staged cardiac cath/PCI for tomorrow morning. D/w Dr. Hurtado difficulty during cath due to spasm, will attempt via groin access tomorrow. on encounter overlying TR band, no bleeding. No complaints. (1) elevated leukocytosis possible sepsis Current Visit: Yes Status: Acute Plan to address problem: Sepsis protocol: Chest x-ray, CBC, CMP, urinalysis, IV antibiotic therapy, serial lactic acid level, IV fluid resuscitation therapy, maintain mean arterial pressure greater than equal to 65. (2) NSTEMI (non-ST elevated myocardial infarction) Current Visit: Yes Status: Acute Plan to address problem: ACS protocol: Serial cardiac enzymes, EKG, telemetry, therapeutic Lovenox, cardiology team consulted, telemetry monitoring. Cath findings: lt main patent, lad 95%, lcx patent, om1 60%, rca mid 30% normal lv function Int cardilogy unable to complete pci of lad via radial secondary to spasm Staged pci of lad via groin approach tomorrow NPO midnight. (3) Diastolic CHF Current Visit: Yes Status: Acute Qualifiers: Heart failure chronicity: acute Qualified Code(s): I50.31 - Acute diastolic (congestive) heart failure Plan to address problem: Blood pressure control, thyroid panel, magnesium level, echocardiogram ordered and pending at time of admission, BNP, afterload reduction. (4) Pneumonia Current Visit: Yes Status: Acute Plan to address problem: Pneumonia protocol: Chest x-ray, CBC, CMP, supplemental oxygen, nebulizer therapy, IV antibiotic therapy, pulmonary toilet, blood culture. (5) Suspected 2019 novel coronavirus infection Current Visit: Yes Status: Acute Plan to address problem: Coronavirus protocol: Supplemental oxygen, IV antibiotic therapy, IV steroid therapy, vitamin C therapy, vitamin C therapy, zinc therapy, therapeutic Lovenox, pulmonary toilet. Prone positioning while in bed as per staff capability. (6) Obesity hypoventilation syndrome Current Visit: Yes Status: Acute Plan to address problem: Balanced diet, increase physical activity at discharge, outpatient pulmonary follow-up for sleep study. CPAP nightly. (7) DVT prophylaxis Current Visit: Yes Status: Acute Plan to address problem: SCD to bilateral lower extremities while in bed, therapeutic anticoagulation. (8) Advance care planning Current Visit: Yes Status: Acute Plan to address problem: Disease education conducted, care plan discussed, diagnosis discussed, prognosis discussed, patient is full code. Patient acknowledges understanding and agreement with care plan, +30 minutes. History Interval history: No complaints on my encounter. Answered all questions to patient's satisfaction. Discussed plan for likely cardiac cath tomorrow. Hospitalist Physical - Physical exam Narrative exam: - Physical exam Narrative exam: VITAL SIGNS: Reviewed. GENERAL: The patient appears normally developed, morbidly obese vital signs as documented. HEAD: No signs of head trauma. EYES: Pupils are equal. Extraocular motions intact. EARS: Hearing grossly intact. MOUTH: Oropharynx is normal. NECK: No adenopathy, no JVD. CHEST: Chest with clear breath sounds bilaterally. No wheezes, rales, or rhonchi. CARDIAC: Regular rate and rhythm. S1 and S2, without murmurs, gallops, or rubs. VASCULAR: No Edema. Peripheral pulses normal and equal in all extremities. ABDOMEN: Soft, non tender and non distended. No rebound or guarding, and no masses palpated. Bowel Sounds normal. MUSCULOSKELETAL: Good range of motion of all major joints. Extremities without clubbing, cyanosis or edema. NEUROLOGIC EXAM: Alert and oriented x 3 No focal sensory or strength deficits. Speech normal. Follows commands. PSYCHIATRIC: Mood normal. SKIN: detail exam as documented in skin assessment. TR band on right wrist. No overt bleeding. some bruising noted. - Constitutional Vitals: Temp Pulse Resp BP Pulse Ox 99.2 F 52 L 15 126/43 97 04/01/21 03:50 04/01/21 04:00 04/01/21 04:00 04/01/21 04:00 04/01/21 04:00 General appearance: Present: no acute distress HEART Score - HEART Score EKG: Normal Age: 45-65 Risk factors: > 3 risk factors or hx of atherosclerotic disease Troponin: Troponin T 0.174 ng/mL (0.00-0.029) H* 03/31/21 00:28 Troponin: 1-3x normal limit Results - Labs CBC & Chem 7: 04/01/21 04:08 04/01/21 04:08 Labs: Laboratory Last Values WBC 11.3 K/mm3 (4.5-11.0) H 04/01/21 04:08 RBC 5.08 M/mm3 (3.65-5.03) H 04/01/21 04:08 Hgb 14.0 gm/dl (11.8-15.2) 04/01/21 04:08 Hct 43.5 % (35.5-45.6) 04/01/21 04:08 MCV 86 fl (84-94) 04/01/21 04:08 MCH 28 pg (28-32) 04/01/21 04:08 MCHC 32 % (32-34) 04/01/21 04:08 RDW 14.1 % (13.2-15.2) 04/01/21 04:08 Plt Count 212 K/mm3 (140-440) 04/01/21 04:08 Lymph % (Auto) 22.7 % (13.4-35.0) 04/01/21 04:08 [place] % (Auto) 11.8 % (0.0-7.3) H 04/01/21 04:08 Eos % (Auto) 5.2 % (0.0-4.3) H 04/01/21 04:08 Baso % (Auto) 0.9 % (0.0-1.8) 04/01/21 04:08 Lymph # (Auto) 2.6 K/mm3 (1.2-5.4) 04/01/21 04:08 [place] # (Auto) 1.3 K/mm3 (0.0-0.8) H 04/01/21 04:08 Eos # (Auto) 0.6 K/mm3 (0.0-0.4) H 04/01/21 04:08 Baso # (Auto) 0.1 K/mm3 (0.0-0.1) 04/01/21 04:08 Seg Neutrophils % 59.4 % (40.0-70.0) 04/01/21 04:08 Seg Neutrophils # 6.7 K/mm3 (1.8-7.7) 04/01/21 04:08 PT 13.5 Sec. (12.2-14.9) 04/01/21 04:08 INR 0.93 (0.87-1.13) 04/01/21 04:08 APTT 32.0 Sec. (24.2-36.6) 04/01/21 04:08 D-Dimer 1698.70 ng/mlDDU (0-234) H 03/30/21 19:58 Heparin Anti-Xa Level 0.18 U.I./ml (0.3-0.7) L 04/01/21 04:08 Sodium 133 mmol/L (137-145) L 04/01/21 04:08 Potassium 4.1 mmol/L (3.6-5.0) 04/01/21 04:08 Chloride 98.9 mmol/L (98-107) 04/01/21 04:08 Carbon Dioxide 23 mmol/L (22-30) 04/01/21 04:08 Anion Gap 15 mmol/L 04/01/21 04:08 BUN 10 mg/dL (9-20) 04/01/21 04:08 Creatinine 0.8 mg/dL (0.8-1.3) 04/01/21 04:08 Estimated GFR > 60 ml/min 04/01/21 04:08 BUN/Creatinine Ratio 13 % 04/01/21 04:08 Glucose 112 mg/dL (75-100) H 04/01/21 04:08 POC Glucose 185 mg/dL (70-105) H 03/31/21 18:03 Calcium 8.2 mg/dL (8.4-10.2) L 04/01/21 04:08 Ferritin 690.4 ng/mL (30.0-300.0) H 03/30/21 17:15 Total Bilirubin 0.60 mg/dL (0.1-1.2) 04/01/21 04:08 AST 77 units/L (5-40) H 04/01/21 04:08 ALT 40 units/L (7-56) 04/01/21 04:08 Alkaline Phosphatase 65 units/L (35-129) 04/01/21 04:08 Lactate Dehydrogenase 197 units/L (91-180) H 03/30/21 19:58 Troponin T 0.174 ng/mL (0.00-0.029) H* 03/31/21 00:28 C-Reactive Protein 0.80 mg/dL (0.00-1.30) 03/30/21 19:58 NT-Pro-B Natriuret Pep 438.2 pg/mL (0-900) 03/30/21 17:15 Total Protein 5.7 g/dL (6.3-8.2) L 04/01/21 04:08 Albumin 3.1 g/dL (3.9-5) L 04/01/21 04:08 Albumin/Globulin Ratio 1.2 % 04/01/21 04:08 Triglycerides 133 mg/dL (2-149) 03/30/21 17:15 Cholesterol 211 mg/dL (50-199) H 03/30/21 17:15 LDL Cholesterol Direct 164 mg/dL (50-130) H 03/30/21 17:15 HDL Cholesterol 39 mg/dL (40-59) L 03/30/21 17:15 Cholesterol/HDL Ratio 5.41 % 03/30/21 17:15 Procalcitonin 0.05 ng/mL (<0.15) 03/30/21 17:15 Coronavirus (PCR) Negative (Negative) 03/31/21 08:40 Blood Type O POSITIVE 04/01/21 05:21 Antibody Screen Negative 04/01/21 05:21 Perez/IV: Voiding Method Toilet Active Medications - Current Medications Current Medications: Generic Name Dose Route Start Last Admin Trade Name Freq PRN Reason Stop Dose Admin Acetaminophen 650 mg 03/30/21 18:29 Acetaminophen 325 Mg Tab PO Q4H PRN Pain MILD(1-3)/Fever >100.5/CAL[place]N Atorvastatin Calcium 40 mg 03/30/21 22:00 03/31/21 21:16 Atorvastatin 40 Mg Tab PO 40 mg QHS ALEE Administration Carvedilol 6.25 mg 03/30/21 22:00 03/31/21 21:16 Carvedilol 6.25 Mg Tab PO 6.25 mg BID ALEE Administration Clopidogrel Bisulfate 75 mg 03/31/21 18:00 03/31/21 17:26 Clopidogrel 75 Mg Tab PO 75 mg QPM ALEE Administration Cyclobenzaprine HCl 10 mg 03/30/21 22:00 03/31/21 21:16 Cyclobenzaprine 10 Mg Tab PO 10 mg BID ALEE Administration Famotidine 20 mg 03/30/21 22:00 03/31/21 21:16 Famotidine 20 Mg Tab PO 20 mg BID ALEE Administration Azithromycin 500 mg in 250 mls @ 250 mls/hr 03/30/21 20:00 03/31/21 22:56 Zithromax/Ns IV 250 mls/hr Q24H ALEE Administration Protocol Ceftriaxone Sodium 2 gm in 100 mls @ 200 mls/hr 03/30/21 20:00 03/31/21 21:16 Rocephin/Ns 2 Gm/100 Ml IV 200 mls/hr Q24H ALEE Administration Protocol Insulin Human Lispro 0 unit 04/01/21 07:30 04/01/21 08:18 Insulin Lispro 100 Unit/Ml SUB-Q Not Given ACHS [facility] Protocol Lisinopril 5 mg 03/31/21 10:00 03/31/21 10:16 Lisinopril 5 Mg Tab PO 5 mg QDAY ALEE Administration Morphine Sulfate 2 mg 03/31/21 01:00 03/31/21 21:17 Morphine 2 Mg/1 Ml Inj IV 2 mg Q4H PRN Administration Pain , Severe (7-10) Ondansetron HCl 4 mg 03/30/21 18:29 03/31/21 00:19 Ondansetron 4 Mg/2 Ml Inj IV 4 mg Q8H PRN Administration Nausea And Vomiting Oxycodone/Acetaminophen 1 tab 03/30/21 18:29 Oxycodone /Acetaminophen 5-325mg Tab PO Q8H PRN Pain, Moderate (4-6) Potassium Chloride 20 meq 03/31/21 10:00 03/31/21 10:15 Potassium Chloride Er 20 Meq Tab PO 20 meq QDAY ALEE Administration Senna/Docusate Sodium 1 tab 03/30/21 22:00 03/31/21 21:16 Sennosides/Docusate Sodium 8.6/50 Mg Tab PO 1 tab BID ALEE Administration Sodium Chloride 10 ml 03/30/21 22:00 03/31/21 23:00 Sodium Chloride 0.9% 10 Ml Flush Syringe IV 10 ml BID ALEE Administration Sodium Chloride 10 ml 03/30/21 18:33 Sodium Chloride 0.9% 10 Ml Flush Syringe IV PRN PRN LINE FLUSH Sodium Chloride 10 ml 03/31/21 08:39 Sodium Chloride 0.9% 500 Ml Ivpb IV PRN PRN FLUSH Tramadol HCl 50 mg 03/30/21 18:33 Tramadol 50 Mg Tab PO Q6H PRN Pain, Moderate (4-6)
[2021-04-01] MEDS ORDERED: traMADol 50 MG TAB PO PRN (08:36)
--- NOTE | 2021-04-01 08:43 | Progress Note ---
Assessment and Plan Patient is 16-vorn-vti-year-old male past medical history of coronary artery disease s/p [place], hypertension, diabetes, hyperlipidemia, obesity presents with a complaint of chest pain x2-day prior to admission NSTEMI Leukocytosis HTN HLD Obesity Noncompliance acute diastolic heart failure rec: pt has cath lt main patent, lad 95%, lcx patent, om1 60%, rca mid 30% normal lv function, unable to complete pci of lad via radial secondary to tourtisty and spasm, will schedule in am pci of lad via groin apporach, plavix loaded - Patient Problems (1) NSTEMI (non-ST elevated myocardial infarction) Current Visit: Yes Status: Acute (2) Obesity hypoventilation syndrome Current Visit: Yes Status: Chronic (3) Acute on chronic heart failure Current Visit: No Status: Acute Qualifiers: Heart failure type: diastolic Qualified Code(s): I50.33 - Acute on chronic diastolic (congestive) heart failure (4) CAD (coronary artery disease) Current Visit: No Status: Chronic Qualifiers: Coronary Disease-Associated Artery/Lesion type: creek artery Associated angina: with unstable angina (5) HLD (hyperlipidemia) Current Visit: No Status: Chronic Qualifiers: Hyperlipidemia type: mixed hyperlipidemia Qualified Code(s): E78.2 - Mixed hyperlipidemia (6) HTN (hypertension) Current Visit: No Status: Chronic (7) Obesities, morbid Onset Date: 06/20/13 Current Visit: No Status: Chronic Subjective Date of service: 04/01/21 Principal diagnosis: nstemi Interval history: pt currently chest pain free Objective Vital Signs Temp Pulse Pulse Resp BP Pulse Ox 04/01/21 04:00 53 L 15 126/43 97 04/01/21 03:50 99.2 F 04/01/21 03:00 54 L 18 116/49 97 04/01/21 02:00 56 L 18 127/48 96 04/01/21 01:00 60 19 118/58 94 04/01/21 00:00 100.4 F H 71 11 L 137/68 93 03/31/21 23:03 66 18 144/61 98 03/31/21 23:00 70 21 144/61 96 03/31/21 22:26 70 15 169/77 98 03/31/21 22:00 81 169/77 92 03/31/21 21:16 84 165/104 01/24/22 21:01 74 12 124/64 95 03/31/21 21:00 96 03/31/21 20:00 100.2 F H 83 23 124/64 96 03/31/21 19:52 97 03/31/21 19:01 84 121/67 95 03/31/21 18:00 65 130/74 95 03/31/21 17:01 79 21 112/49 96 03/31/21 17:00 72 20 99 03/31/21 16:01 60 18 112/49 96 03/31/21 16:00 98.6 F 03/31/21 15:01 77 18 116/86 97 03/31/21 14:01 63 16 109/62 97 03/31/21 14:00 84 03/31/21 13:01 67 25 H 112/56 96 03/31/21 13:00 70 19 98 03/31/21 12:00 98.4 F 63 15 140/76 98 03/31/21 11:00 58 L 19 127/71 97 03/31/21 10:58 80 03/31/21 10:16 68 151/80 03/31/21 10:01 62 151/80 98 03/31/21 09:01 59 L 18 151/80 98 03/31/21 09:00 66 20 99 - Physical Examination General: Appears Well HEENT: Positive: PERRL, Normocephaly Neck: Positive: trachea midline Cardiac: Positive: Reg Rate and Rhythm Lungs: Positive: clear to auscultation Neuro: Positive: Grossly Intact Abdomen: Positive: Soft, Active Bowel Sounds Skin: Negative: Rash, Suspicious Lesions, Ulceration Extremities: Present: upper extr. pulses. Absent: edema - Labs and Meds Cardiac Enzymes 04/01/21 Range/Units 04:08 AST 77 H (5-40) units/L Coagulation 04/01/21 04/01/21 Range/Units 04:08 04:08 PT 13.5 (12.2-14.9) Sec. INR 0.93 (0.87-1.13) APTT 32.0 (24.2-36.6) Sec. CBC 04/01/21 Range/Units 04:08 WBC 11.3 H (4.5-11.0) K/mm3 RBC 5.08 H (3.65-5.03) M/mm3 Hgb 14.0 (11.8-15.2) gm/dl Hct 43.5 (35.5-45.6) % Plt Count 212 (140-440) K/mm3 Lymph # (Auto) 2.6 (1.2-5.4) K/mm3 [place] # (Auto) 1.3 H (0.0-0.8) K/mm3 Eos # (Auto) 0.6 H (0.0-0.4) K/mm3 Baso # (Auto) 0.1 (0.0-0.1) K/mm3 Comprehensive Metabolic Panel 04/01/21 Range/Units 04:08 Sodium 133 L (137-145) mmol/L Potassium 4.1 (3.6-5.0) mmol/L Chloride 98.9 (98-107) mmol/L Carbon Dioxide 23 (22-30) mmol/L BUN 10 (9-20) mg/dL Creatinine 0.8 (0.8-1.3) mg/dL Glucose 112 H (75-100) mg/dL Calcium 8.2 L (8.4-10.2) mg/dL AST 77 H (5-40) units/L ALT 40 (7-56) units/L Alkaline Phosphatase 65 (35-129) units/L Total Protein 5.7 L (6.3-8.2) g/dL Albumin 3.1 L (3.9-5) g/dL - Imaging and Cardiology Echo: pending Cardiac cath: pending, report reviewed (lt main patent, lad mid 95%, diagonal 1 and 2 osital 90%, lcx patent, om1 60%, rca mid 30% normal lv function lvedp 30 mm hg ) - EKG Sinus rhythms and dysrhythmias: sinus rhythm Repolarization changes or abnormalities: nonspecific abnormality, ST segment, and/or T wave
--- NOTE | 2021-04-01 08:57 | Electrocardiograph Report ---
[facility] Test Date: 2021-03-31 Test Time: 10:23:29 Pat Name: AQUILINO BOSWELL Department: Room: A265 1 Gender: M Social Insurance Administrator: JORDANA : 1960 Requested By: DECLAN MASCORRO Order Number: [id number] Reading MD: Kemar Hurtado Measurements Intervals [place] Rate: 65 P: 10 NH: 230 QRS: -1 QRSD: 100 T: QT: 484 QTc: 504 Interpretive Statements Sinus rhythm Prolonged [place] interval Nonspecific T abnormalities, diffuse leads nonspecific st-t Compared to ECG 03/30/2021 16:52:10 First degree AV block now present T-wave abnormality now present Prolonged QT interval now present Electronically Signed On 04-01-2021 8:57:15 EST by Kemar Hurtado
--- NOTE | 2021-04-01 08:57 | Cardiac Catherization Report ---
DATE OF SERVICE: 04/01/2021 CLINICAL INFORMATION: This is a 60-year-old male with morbid obesity, hypertension, and hyperlipidemia, presents with non-ST elevation VA, here for left heart catheterization. The patient has a history of coronary arterial disease. The patient was done with moderate sedation started at 7:47, finished at 8:18, 31 minutes of moderate sedation was given. DESCRIPTION OF PROCEDURE: Procedure was done via the right radial artery, sterile technique and local anesthesia. A 6-[place] radial sheath inserted. Left system engaged with JL3.5 catheter subselectively. Left main is large and patent, and bifurcates into large LAD, proximal is patent and diagonal 1 has a bzalb-zj-jfilxz caliber vessel with ostial 90%, then there is a focal 95% lesion with АНДРЕЙ 3 flow and the stent is patent. Then, diagonal 2 is a fwvdz-ao-zzidun caliber vessel, has an ostial 95%. Rest of the LAD is patent. Circumflex, large caliber vessel, patent. Mild luminal irregularities. OM1 is a large caliber vessel. Mid has a 60% lesion. RCA engaged with an AL1 catheter, is a large, dominant vessel, proximal is patent, mid 30%, distal patent. PDA, PLV patent. Mild luminal irregularities. LV gram done in ____ GAY view shows normal LV function, LVEDP 32 mmHg, LV is 129. Aortic is 129/80. No gradient across the aortic valve on pullback. The 5-[place] catheters all taken over a guidewire. Attempted PCI of the LAD, but secondary to spasm and tortuosity, unable to, given the length and tortuosity and the patient being on Angiomax and morbid obesity, we will postpone the procedure for PCI of the LAD via the right common femoral artery, so a 6-[place] guiding catheter taken over a guidewire. A 6-[place] radial sheath was discontinued. Radial band applied. No hematoma. No bleeding. SUMMARY: Left main patent, LAD proximal patent, mid 95%, diagonal 1 ostial 90%, mid stent patent. Diagonal 2 ostial 95%, circumflex patent, OM1 mid 60%, RCA mid 30%, normal LV function with elevated left end-diastolic pressure. The patient will have staged percutaneous coronary intervention of the LAD. The patient was loaded with Plavix 600 mg. TID: [id number] RECEIPT: [id number] TOSHIA/HIWOT/SAHIL
[2021-04-01] MEDS ORDERED: SODIUM CHLORIDE 0.9% 500 ML 500 ML IV SCH (09:00)
[2021-04-01] MEDS ORDERED: SODIUM CHLORIDE 0.9% 50 ML IVPB IV PRN (09:00)
--- NOTE | 2021-04-01 09:01 | Electrocardiograph Report ---
[facility] Test Date: 2021-04-01 Test Time: 05:20:59 Pat Name: AQUILINO BOSWELL Department: Room: A265 1 Gender: M Cardiac Catheterization Technologist: MARIA DOLORES : 1960 Requested By: KEMAR HURTADO Order Number: [id number] Reading MD: Kemar Hurtado Measurements Intervals [place] Rate: 58 P: 29 AK: 213 QRS: 39 QRSD: 92 T: 123 QT: 566 QTc: 556 Interpretive Statements Sinus bradycardia Prolonged [place] interval t wave inversion anterior leads Compared to ECG 03/31/2021 10:23:29 Early repolarization now present Possible ischemia now present Sinus rhythm no longer present T-wave abnormality no longer present Electronically Signed On 04-01-2021 9:01:11 EST by Kemar Hurtado
[2021-04-01] MEDS: CYCLOBENZAPRINE 10 MG TAB PO SCH ×2 (10:27→21:23)
[2021-04-01] MEDS: SENNOSIDES/DOCUSATE SODIUM 8.6/50 MG TAB PO SCH ×2 (10:27→21:23)
[2021-04-01] MEDS: FAMOTIDINE 20 MG TAB PO SCH ×2 (10:28→21:23)
[2021-04-01] MEDS: carvediloL 6.25 MG TAB PO SCH ×2 (10:28→21:21)
[2021-04-01] MEDS: LISINOPRIL 5 MG TAB PO SCH (10:28)
[2021-04-01] MEDS: POTASSIUM CHLORIDE ER 20 MEQ TAB PO SCH (10:28)
[2021-04-01] MEDS: ASPIRIN 81 MG TAB CHEW PO SCH (10:40)
[2021-04-01] MEDS: HYDROcodone/ACETAMINOPHEN 5-325 MG TAB PO PRN ×2 (12:52→17:48)
[2021-04-01] MEDS: CLOPIDOGREL 75 MG TAB PO SCH (17:49)
[2021-04-01] MEDS: AZITHROMYCIN 250 MG TAB PO SCH (21:21)
[2021-04-01] MEDS: cefTRIAXone/NS 2 GM/100 ML 2 GM/100 ML BAG IV SCH (21:26)
[2021-04-02] MEDS: HYDROcodone/ACETAMINOPHEN 5-325 MG TAB PO PRN ×4 (01:02→23:32)
[2021-04-02 06:49] LABS: Basophils # (Auto) 0.1 K/mm3 (0.0-0.1); Basophils % (Auto) 1.1 % (0.0-1.8); Eosinophils % (Auto) 10.9 % (0.0-4.3); Hematocrit 44.1 % (35.5-45.6); Lymphocytes # (Auto) 1.9 K/mm3 (1.2-5.4); Lymphocytes % (Auto) 22.1 % (13.4-35.0); Mean Corpuscular HGB Conc 32 % (32-34); Mean Corpuscular Volume 85 fl (84-94); Monocytes # (Auto) 1.2 K/mm3 (0.0-0.8); Monocytes % (Auto) 13.6 % (0.0-7.3); Platelet Count 215 K/mm3 (140-440); Red Blood Count 5.17 M/mm3 (3.65-5.03); Red Cell Distribution Width 14.2 % (13.2-15.2)
[2021-04-02 07:03] LABS: INR 0.92 (0.87-1.13)
[2021-04-02 07:47] LABS: BUN/Creatinine Ratio 14; Blood Urea Nitrogen 13 mg/dL (9-20); Calcium 8.4 mg/dL (8.4-10.2); Hemolysis Index 106
[2021-04-02] MEDS ORDERED: HEPARIN 10,000 UNITS/10 ML VIAL ONE (08:13)
[2021-04-02] MEDS ORDERED: MIDAZOLAM 2 MG/2 ML INJ ONE (08:13)
[2021-04-02] MEDS ORDERED: HEPARIN/NS 5000 UNIT/500ML 1,000 ML IR ONE (08:13)
[2021-04-02] MEDS ORDERED: fentaNYL 100 MCG/2 ML INJ ONE (08:13)
[2021-04-02] MEDS ORDERED: LIDOCAINE (2%) 20 MG/1 ML VIAL 20 ML MDV INFILTRATI ONE (08:14)
[2021-04-02] MEDS ORDERED: BIVALIRUDIN 250 MG INJ IV ONE (08:15)
[2021-04-02] MEDS ORDERED: SODIUM CHLORIDE 0.9% 500 ML 500 ML ONE (08:16)
[2021-04-02] MEDS ORDERED: SODIUM CHLORIDE 0.9% 100 ML ONE (08:34)
[2021-04-02] MEDS ORDERED: WATER FOR INJ Sterile (PF) 10 ML ONE (08:34)
[2021-04-02] MEDS ORDERED: NITROGLYCERIN SYRINGE 3 ML ONE ×2 (08:39→09:18)
--- NOTE | 2021-04-02 08:52 | Electrocardiograph Report ---
[facility] Test Date: 2021-04-02 Test Time: 07:13:56 Pat Name: AQUILINO BOSWELL Department: Room: A265 1 Gender: M Television Inspector: JORDANA : 1960 Requested By: SUSY CONLEY Order Number: [id number] Reading MD: Kemar Hurtado Measurements Intervals [place] Rate: 51 P: 24 SD: 235 QRS: 13 QRSD: 94 T: 115 QT: 541 QTc: 501 Interpretive Statements Sinus rhythm Prolonged SD interval Abnrm T, probable ischemia, anterolateral lds Compared to ECG 04/01/2021 05:20:59 Possible ischemia now present Prolonged QT interval now present Sinus bradycardia no longer present T-wave abnormality no longer present Electronically Signed On 04-02-2021 8:52:45 EST by Kemar Hurtado
[2021-04-02] MEDS: fentaNYL 100 MCG/2 ML INJ ONE (08:57)
[2021-04-02] MEDS: LIDOCAINE (2%) 20 MG/1 ML VIAL 20 ML MDV INFILTRATI ONE (08:58)
[2021-04-02] MEDS: BIVALIRUDIN 250 MG INJ IV ONE ×2 (09:00→09:42)
[2021-04-02] MEDS: NITROGLYCERIN SYRINGE 3 ML ONE (09:11)
[2021-04-02] MEDS ORDERED: HEPARIN/NS 5000 UNIT/500ML 500 ML IR ONE (09:18)
--- NOTE | 2021-04-02 09:20 | Progress Note ---
Assessment and Plan Assessment and plan: HPI: 60 YO Male with Obesity Hypoventilation Syndrome, DM, HTN, HLD, MS, OA Metabolic Syndrome presents to ED for evaluation. Patient reports "my chest is hurting and I do not feel good". Patient states that he has experienced chest pain over the past 2 days with intermittent but persistently worsening symptoms over the same timeframe. Patient states that pain is 5/10, intermittent but now has become more constant, substernal, worsened with exertion, relieved with rest, nonr adiating, relieved with nitro. Associated with shortness of breath. Patient acknowledges decreased exercise tolerance, fatigue, malaise, diminished sense of smell, diminished sense of taste. EMS was notified and upon arrival the patient was found to be in distress and subsequently transported to [facility] for further care and evaluation of the aforementioned symptoms. The patient was seen and evaluated in the emergency department. All lab and imaging studies reviewed. Patient found to have laboratory findings consistent with NSTEMI and was initiated on therapeutic anticoagulation and admitted to [facility]. Chest x-ray revealed bilateral pneumonia complicated by sepsis. Patient admitted to [facility] and initiated on sepsis protocol as well as pneumonia protocol and coronavirus protocol. Prior admission on June 19, 2013 reviewed. All medication listed at time of admission has been reconciled. Advanced care planning conducted in ED. Admitted to [facility]. Hospital course: 03/31: Continue current management. Discussed with cardiology team patient will need to be ruled out for Covid prior to invasive procedure to evaluate for non- ST elevated MS. Patient reports that he had an MS few years ago was compliant with his aspirin although did miss 1 or 2 days in the recent weeks. He states that he was intolerable off statin therapy due to generalized body pain from the medication has not reported any at this time. For now continue appropriate goal-directed medical therapy. Clinically appears stable also did discuss with her [facility] physicians due to patient's current ongoing chest pain not stable for transfer. Will defer to cardiology if nitro drip will be initiated if patient's pain continues. No clear etiology for initial leukocytosis although continued could be secondary to initiated steroid therapy. Patient has no fever at this time, cultures remain negative. 04/01: Staged cardiac cath/PCI for tomorrow morning. D/w Dr. Hurtado difficulty during cath due to spasm, will attempt via groin access tomorrow. on encounter overlying TR band, no bleeding. No complaints. 04/02: Cath findings noted. TIFFANY to LAD. Initiated on DAPT. Agree with addition of imdur and hydralazine. Will continue to follow along. Possible d/c in next 24-48 hrs. Assessment and Plan # NSTEMI (non-ST elevated myocardial infarction) Current Visit: Yes Status: Acute Plan to address problem: ACS protocol: Serial cardiac enzymes, EKG, telemetry, therapeutic Lovenox, cardiology team consulted, telemetry monitoring. Int cardilogy unable to complete pci of lad via radial secondary to spasm, staged groin approach on 04/02. Cardiac cath 04/01/2021-left main patent, LAD proximal patent, mid 95% diagonal 1 ostial 90%, mid stent patent. Diagonal 2 ostial 95%, circumflex patent, OM1 mid 60%, RCA mid 30%, normal LV function with elevated left end-diastolic pressure u nable to complete pci of lad via radial secondary to tourtisty and spasm. Patient will have staged PCI of LAD patient loaded with Plavix 200 mg Cardiac cath 04/02/2021-successful PCI of LAD across diagonal 1 with a drug- eluting stent. Successful PCI of OM1 with drug-eluting stent left main pain, circumflex contained. Continue DAPT, Statin, BB. Noted addition of Imdur # HFrEF Current Visit: Yes Status: Acute Qualifiers: Heart failure chronicity: acute Qualified Code(s): I50.31 - Acute diastolic (congestive) heart failure Plan to address problem: Echo 03/30/2021-EF 45 to 50%. Hypokinesis in the apex wall. No left ventricular thrombus noted on the study. Right ventricular systolic function. BB, ANTONIA-i. Blood pressure control, thyroid panel, magnesium level, echocardiogram ordered a nd pending at time of admission, BNP, afterload reduction. # Sepsis POA (improving) Current Visit: Yes Status: Acute Plan to address problem: Sepsis protocol: Chest x-ray, CBC, CMP, urinalysis, IV antibiotic therapy, serial lactic acid level, IV fluid resuscitation therapy, maintain mean arterial pressure greater than equal to 65. #Pneumonia (improving) Current Visit: Yes Status: Acute Plan to address problem: Pneumonia protocol: Chest x-ray, CBC, CMP, supplemental oxygen, nebulizer therapy, IV antibiotic therapy, pulmonary toilet, blood culture. # Suspected 2019 novel coronavirus infection Current Visit: Yes Status: Acute Plan to address problem: RT PCR negative Coronavirus protocol: Supplemental oxygen, IV antibiotic therapy, IV steroid therapy, vitamin C therapy, vitamin C therapy, zinc therapy, therapeutic Lovenox, pulmonary toilet. Prone positioning while in bed as per staff capability. # Obesity hypoventilation syndrome Current Visit: Yes Status: Acute Plan to address problem: Balanced diet, increase physical activity at discharge, outpatient pulmonary follow-up for sleep study. CPAP nightly. # CAD Current Visit: Yes Status: Acute Plan to address problem: ASA, statin, BB # Essential HTN Current Visit: Yes Status: Acute Plan to address problem: BB, hydralazine, antonia-i # DVT prophylaxis Current Visit: Yes Status: Acute Plan to address problem: SCD to bilateral lower extremities while in bed, therapeutic anticoagulation. # Advance care planning Current Visit: Yes Status: Acute Plan to address problem: Disease education conducted, care plan discussed, diagnosis discussed, prognosis discussed, patient is full code. Patient acknowledges understanding and agreement with care plan, +30 minutes. The high probability of a clinically significant, sudden or life threatening deterioration of the [cardiac] system(s) required my full and direct attention, intervention and personal management. The aggregate critical care time was [60] minutes. This time is in addition to time spent performing reported procedures but includes the following: [x] Data Review and interpretation [x] Patient assessment and monitoring of vital signs [x] Documentation [x] Medication orders and management History Interval history: No acute complaints. Status post cardiac cath. Hospitalist Physical - Physical exam Narrative exam: - Physical exam Narrative exam: VITAL SIGNS: Reviewed. GENERAL: The patient appears normally developed, morbidly obese vital signs as documented. HEAD: No signs of head trauma. EYES: Pupils are equal. Extraocular motions intact. EARS: Hearing grossly intact. MOUTH: Oropharynx is normal. NECK: No adenopathy, no JVD. CHEST: Chest with clear breath sounds bilaterally. No wheezes, rales, or rhonchi. CARDIAC: Regular rate and rhythm. S1 and S2, without murmurs, gallops, or rubs. VASCULAR: No Edema. Peripheral pulses normal and equal in all extremities. ABDOMEN: Soft, non tender and non distended. No rebound or guarding, and no masses palpated. Bowel Sounds normal. MUSCULOSKELETAL: Good range of motion of all major joints. Extremities without clubbing, cyanosis or edema. NEUROLOGIC EXAM: Alert and oriented x 3 No focal sensory or strength deficits. Speech normal. Follows commands. PSYCHIATRIC: Mood normal. SKIN: detail exam as documented in skin assessment. TR band on right wrist. No overt bleeding. some bruising noted. - Constitutional Vitals: Temp Pulse Resp BP Pulse Ox 97.8 F 49 L 22 112/46 97 04/02/21 04:00 04/02/21 06:00 04/02/21 06:00 04/02/21 06:00 04/02/21 06:00 General appearance: Present: no acute distress HEART Score - HEART Score EKG: Normal Age: 45-65 Risk factors: > 3 risk factors or hx of atherosclerotic disease Troponin: Troponin T 0.174 ng/mL (0.00-0.029) H* 03/31/21 00:28 Troponin: 1-3x normal limit Results - Labs CBC & Chem 7: 04/02/21 06:36 04/02/21 06:36 Labs: Laboratory Last Values WBC 8.7 K/mm3 (4.5-11.0) 04/02/21 06:36 RBC 5.17 M/mm3 (3.65-5.03) H 04/02/21 06:36 Hgb 14.0 gm/dl (11.8-15.2) 04/02/21 06:36 Hct 44.1 % (35.5-45.6) 04/02/21 06:36 MCV 85 fl (84-94) 04/02/21 06:36 MCH 27 pg (28-32) L 04/02/21 06:36 MCHC 32 % (32-34) 04/02/21 06:36 RDW 14.2 % (13.2-15.2) 04/02/21 06:36 Plt Count 215 K/mm3 (140-440) 04/02/21 06:36 Lymph % (Auto) 22.1 % (13.4-35.0) 04/02/21 06:36 [place] % (Auto) 13.6 % (0.0-7.3) H 04/02/21 06:36 Eos % (Auto) 10.9 % (0.0-4.3) H 04/02/21 06:36 Baso % (Auto) 1.1 % (0.0-1.8) 04/02/21 06:36 Lymph # (Auto) 1.9 K/mm3 (1.2-5.4) 04/02/21 06:36 [place] # (Auto) 1.2 K/mm3 (0.0-0.8) H 04/02/21 06:36 Eos # (Auto) 1.0 K/mm3 (0.0-0.4) H 04/02/21 06:36 Baso # (Auto) 0.1 K/mm3 (0.0-0.1) 04/02/21 06:36 Seg Neutrophils % 52.3 % (40.0-70.0) 04/02/21 06:36 Seg Neutrophils # 4.5 K/mm3 (1.8-7.7) 04/02/21 06:36 PT 13.4 Sec. (12.2-14.9) 04/02/21 06:36 INR 0.92 (0.87-1.13) 04/02/21 06:36 APTT 32.0 Sec. (24.2-36.6) 04/01/21 04:08 D-Dimer 1698.70 ng/mlDDU (0-234) H 03/30/21 19:58 Heparin Anti-Xa Level 0.18 U.I./ml (0.3-0.7) L 04/01/21 04:08 Sodium 133 mmol/L (137-145) L 04/02/21 06:36 Potassium 4.4 mmol/L (3.6-5.0) 04/02/21 06:36 Chloride 98.5 mmol/L (98-107) 04/02/21 06:36 Carbon Dioxide 24 mmol/L (22-30) 04/02/21 06:36 Anion Gap 15 mmol/L 04/02/21 06:36 BUN 13 mg/dL (9-20) 04/02/21 06:36 Creatinine 0.9 mg/dL (0.8-1.3) 04/02/21 06:36 Estimated GFR > 60 ml/min 04/02/21 06:36 BUN/Creatinine Ratio 14 % 04/02/21 06:36 Glucose 112 mg/dL (75-100) H 04/02/21 06:36 POC Glucose 114 mg/dL (70-105) H 04/02/21 07:17 Calcium 8.4 mg/dL (8.4-10.2) 04/02/21 06:36 Ferritin 690.4 ng/mL (30.0-300.0) H 03/30/21 17:15 Total Bilirubin 0.60 mg/dL (0.1-1.2) 04/01/21 04:08 AST 77 units/L (5-40) H 04/01/21 04:08 ALT 40 units/L (7-56) 04/01/21 04:08 Alkaline Phosphatase 65 units/L (35-129) 04/01/21 04:08 Lactate Dehydrogenase 197 units/L (91-180) H 03/30/21 19:58 Troponin T 0.174 ng/mL (0.00-0.029) H* 03/31/21 00:28 C-Reactive Protein 0.80 mg/dL (0.00-1.30) 03/30/21 19:58 NT-Pro-B Natriuret Pep 438.2 pg/mL (0-900) 03/30/21 17:15 Total Protein 5.7 g/dL (6.3-8.2) L 04/01/21 04:08 Albumin 3.1 g/dL (3.9-5) L 04/01/21 04:08 Albumin/Globulin Ratio 1.2 % 04/01/21 04:08 Triglycerides 133 mg/dL (2-149) 03/30/21 17:15 Cholesterol 211 mg/dL (50-199) H 03/30/21 17:15 LDL Cholesterol Direct 164 mg/dL (50-130) H 03/30/21 17:15 HDL Cholesterol 39 mg/dL (40-59) L 03/30/21 17:15 Cholesterol/HDL Ratio 5.41 % 03/30/21 17:15 Procalcitonin 0.05 ng/mL (<0.15) 03/30/21 17:15 Nasal Screen MRSA (PCR) Negative (Negative) 03/31/21 08:00 Coronavirus (PCR) Negative (Negative) 03/31/21 08:40 Blood Type O POSITIVE 04/01/21 05:21 Antibody Screen Negative 04/01/21 05:21 Perez/IV: Voiding Method Toilet Active Medications - Current Medications Current Medications: Generic Name Dose Route Start Last Admin Trade Name Freq PRN Reason Stop Dose Admin Acetaminophen 650 mg 03/30/21 18:29 Acetaminophen 325 Mg Tab PO Q4H PRN Fever >100.5/[place]N Hydrocodone Bitart/Acetaminophen 1 each 04/01/21 08:36 04/02/21 01:02 Hydrocodone/Acetaminophen 5-325 Mg Tab PO 1 each Q4H PRN Administration Pain, Moderate (4-6) Aspirin 81 mg 04/01/21 10:00 04/01/21 10:40 Aspirin 81 Mg Tab Chew PO 81 mg QDAY ALEE Administration Atorvastatin Calcium 40 mg 03/30/21 22:00 04/01/21 21:23 Atorvastatin 40 Mg Tab PO 40 mg QHS ALEE Administration Azithromycin 500 mg 04/01/21 22:00 04/01/21 21:21 Azithromycin 250 Mg Tab PO 04/03/21 22:01 500 mg Q24H ALEE Administration Protocol Carvedilol 6.25 mg 03/30/21 22:00 04/01/21 21:21 Carvedilol 6.25 Mg Tab PO 6.25 mg BID ALEE Administration Clopidogrel Bisulfate 75 mg 03/31/21 18:00 04/01/21 17:49 Clopidogrel 75 Mg Tab PO 75 mg QPM ALEE Administration Cyclobenzaprine HCl 10 mg 03/30/21 22:00 04/01/21 21:23 Cyclobenzaprine 10 Mg Tab PO 10 mg BID ALEE Administration Famotidine 20 mg 03/30/21 22:00 04/01/21 21:23 Famotidine 20 Mg Tab PO 20 mg BID ALEE Administration Ceftriaxone Sodium 2 gm in 100 mls @ 200 mls/hr 03/30/21 20:00 04/01/21 21:26 Rocephin/Ns 2 Gm/100 Ml IV 04/03/21 20:29 200 mls/hr Q24H ALEE Administration Protocol Insulin Human Lispro 0 unit 04/01/21 07:30 04/01/21 21:24 Insulin Lispro 100 Unit/Ml SUB-Q 2 unit ACHS ALEE Administration Protocol Lisinopril 5 mg 03/31/21 10:00 04/01/21 10:28 Lisinopril 5 Mg Tab PO 5 mg QDAY ALEE Administration Ondansetron HCl 4 mg 03/30/21 18:29 03/31/21 00:19 Ondansetron 4 Mg/2 Ml Inj IV 4 mg Q8H PRN Administration Nausea And Vomiting Potassium Chloride 20 meq 03/31/21 10:00 04/01/21 10:28 Potassium Chloride Er 20 Meq Tab PO 20 meq QDAY ALEE Administration Senna/Docusate Sodium 1 tab 03/30/21 22:00 04/01/21 21:23 Sennosides/Docusate Sodium 8.6/50 Mg Tab PO 1 tab BID ALEE Administration Sodium Chloride 10 ml 03/30/21 22:00 04/01/21 22:22 Sodium Chloride 0.9% 10 Ml Flush Syringe IV 10 ml BID ALEE Administration Sodium Chloride 10 ml 03/30/21 18:33 Sodium Chloride 0.9% 10 Ml Flush Syringe IV PRN PRN LINE FLUSH Sodium Chloride 10 ml 04/01/21 09:00 Sodium Chloride 0.9% 50 Ml Ivpb IV PRN PRN FLUSH Tramadol HCl 50 mg 04/01/21 08:36 Tramadol 50 Mg Tab PO Q4H PRN Pain, Mild (1-3)
[2021-04-02] MEDS ORDERED: NITROGLYCERIN 0.4 MG TAB SUBL SL ONE (09:41)
[2021-04-02] MEDS ORDERED: CLOPIDOGREL 75 MG TAB ONE (09:47)
[2021-04-02] MEDS ORDERED: hydrALAZINE 20 MG/1 ML INJ IV PRN (10:53)
--- NOTE | 2021-04-02 11:02 | Cardiac Catherization Report ---
DATE OF SERVICE: 04/02/2021 CLINICAL INFORMATION: A 60-year-old morbidly obese male who has known coronary artery disease, non-ST elevation AR. Diagnostic cardiac catheterization revealed left main patent, LAD mid 95% lesion stent patent, circ patent, OM1 80%, here for staged PCI of the LAD and OM1. DESCRIPTION OF PROCEDURE: Procedure was done via the right common femoral artery, sterile technique, local anesthesia, a 6-[place] groin sheath. The patient was done with moderate sedation, started at 8:58, finished at 9:32. 34 minutes of moderate sedation. Left system engaged with an EBU 4 catheter. 1. Crossed into the distal LAD with a short Runthrough wire, predilated with a 2.5 x 12 balloon x2 inflations. Intravascular ultrasound revealed left main patent, mild disease. Stent was opposed with mild calcification. Reference vessel is 3.5 x 4.0. 2. Stented with a drug-eluting Resolute 3.5 x 18 inflated at 20 atmospheres across diagonal 1, still maintaining АНДРЕЙ 3 flow, but still has an ostial 90%. Diagonal 2 has 90% lesion, but АНДРЕЙ 3 flow distally is patent, improved flow post-PCI. Then turned our attention to PCI of the circumflex, used the same guide catheter and wired with a Runthrough and distal OM1. Direct intravascular ultrasound showed reference vessel 3.0 x 3.3 with significant stenosis and we stented with a drug-eluting Resolute 3.0 x 12 inflated at 16 atmospheres. 3. Remove coronary wire. Multiple angiograms excellent angiographic result. No dissection, perforation, or embolization noted. The patient did have some chest pain post-PCI. No angiographic evidence of dissection, embolization noted or decreased flow. 4. A 6-[place] guide catheter was taken over guidewire. A 6-[place]ib[place]ian groin sheath sewn in. No hematoma, no bleeding. SUMMARY: 1. Successful PCI of the mid LAD across diagonal 1 with a drug-eluting Resolute 3.5 x 18 overlapping the previously deployed stent and АНДРЕЙ 3 flow and diagonal 1 with ostial 90% with small vessel. Diagonal 2 also had ostial 95%, but АНДРЕЙ 3 flow. 2. Successful PCI of OM1 with drug-eluting Resolute 3.0 x 12 mm at 16 atmospheres. 3. Left main patent, circ patent. 4. Continue dual antiplatelet therapy and post-PCI care. TID: [id number] RECEIPT: [id number] [facility]
[2021-04-02] MEDS: hydrALAZINE 25 MG TAB PO SCH ×2 (11:40→23:30)
--- NOTE | 2021-04-02 13:59 | Progress Note ---
Assessment and Plan Patient is [id number]-year-old male past medical history of coronary artery disease s/p VA, hypertension, diabetes, hyperlipidemia, obesity presents with a complaint of chest pain x2-day prior to admission NSTEMI CAD s/p PCI PNA Leukocytosis HTN HLD Obesity Noncompliance Cardiac cath 04/02/2021-successful PCI of LAD across diagonal 1 with a drug- eluting stent. Successful PCI of OM1 with drug-eluting stent left main pain, circumflex contained. Continue dual antiplatelet therapy Cardiac cath 04/01/2021-left main patent, LAD proximal patent, mid 95% diagonal 1 ostial 90%, mid stent patent. Diagonal 2 ostial 95%, circumflex patent, OM1 mid 60%, RCA mid 30%, normal LV function with elevated left end-diastolic pressure unable to complete pci of lad via radial secondary to tourtisty and spasm. Patient will have staged PCI of LAD patient loaded with Plavix 200 mg Echo 03/30/2021-EF 45 to 50%. Hypokinesis in the apex wall. No left ventricular thrombus noted on the study. Right ventricular systolic function. Plan: Echo and cath results noted above Continue DAPT theray with asa and Plavix, Contnue Lipitor 40 mg p.o. nightly Coreg 6.25 mg p.o. twice daily and lisinopril 5 mg p.o. daily Patient remains hypertensive with borderline heart rate in low 60s. Will initiate Imdur 30 mg p.o. daily and hydralazine 25 mg p.o. 3 times daily Patient seen in conjunction with Dr. Hurtado who agrees with this plan of care - Patient Problems (1) Chest pain, precordial Current Visit: Yes Status: Acute (2) Elevated troponin Current Visit: Yes Status: Acute (3) Leukocytosis Current Visit: Yes Status: Acute Qualifiers: Leukocytosis type: unspecified Qualified Code(s): D72.829 - Elevated white blood cell count, unspecified (4) NSTEMI (non-ST elevated myocardial infarction) Current Visit: Yes Status: Acute (5) Obesity hypoventilation syndrome Current Visit: Yes Status: Chronic (6) CAD (coronary artery disease) Current Visit: No Status: Chronic Qualifiers: Coronary Disease-Associated Artery/Lesion type: [place] artery Associated angina: with unstable angina (7) Diabetes mellitus type 2 in obese Onset Date: 06/19/13 Current Visit: No Status: Chronic (8) HLD (hyperlipidemia) Current Visit: No Status: Chronic Qualifiers: Hyperlipidemia type: mixed hyperlipidemia Qualified Code(s): E78.2 - Mixed hyperlipidemia (9) HTN (hypertension) Current Visit: No Status: Chronic (10) Obesities, morbid Onset Date: 06/20/13 Current Visit: No Status: Chronic Subjective Date of service: 04/02/21 Principal diagnosis: nstemi Interval history: Patient cardiac cath this a.m. Patient tolerated procedure well and no complications Objective Vital Signs Temp Pulse Resp BP Pulse Ox 04/02/21 13:00 59 L 14 159/72 98 04/02/21 12:20 61 14 174/90 96 04/02/21 12:00 57 L 14 163/87 96 04/02/21 11:40 77 182/98 04/02/21 11:30 75 22 182/98 98 04/02/21 11:00 58 L 21 180/85 96 04/02/21 10:45 59 L 19 193/98 96 04/02/21 10:30 52 L 18 196/94 98 04/02/21 10:15 55 L 14 189/91 98 04/02/21 10:00 98.3 F 71 13 133/90 97 04/02/21 06:00 49 L 22 112/46 97 04/02/21 05:00 51 L 15 84/36 97 04/02/21 04:00 97.8 F 53 L 15 101/47 97 04/02/21 03:00 52 L 15 111/61 93 04/02/21 02:00 54 L 16 100/50 92 04/02/21 01:02 18 04/02/21 01:00 83 14 130/56 99 04/02/21 00:00 97.7 F 55 L 18 86/35 95 04/01/21 23:00 60 16 110/80 95 04/01/21 22:00 92 H 23 123/60 93 04/01/21 21:21 67 167/81 04/01/21 21:01 70 18 150/131 96 04/01/21 21:00 70 15 150/131 96 04/01/21 20:00 97.9 F 61 20 128/68 94 04/01/21 19:16 65 22 92 04/01/21 19:00 68 15 99/52 93 04/01/21 18:01 84 11 L 193/91 95 04/01/21 17:01 56 L 20 192/81 94 04/01/21 16:01 62 13 122/64 94 04/01/21 16:00 98.9 F 85 100 04/01/21 15:01 62 18 156/79 77 L 04/01/21 15:00 98.3 F 04/01/21 14:00 123/45 97 - Physical Examination General: Appears Well HEENT: Positive: PERRL, Normocephaly Neck: Positive: trachea midline Cardiac: Positive: Reg Rate and Rhythm Lungs: Positive: Normal Breath Sounds Neuro: Positive: Grossly Intact Abdomen: Positive: Soft, Active Bowel Sounds Skin: Negative: Rash, Suspicious Lesions, Ulceration Extremities: Present: upper extr. pulses. Absent: edema - Labs and Meds Coagulation 04/02/21 Range/Units 06:36 PT 13.4 (12.2-14.9) Sec. INR 0.92 (0.87-1.13) CBC 04/02/21 Range/Units 06:36 WBC 8.7 (4.5-11.0) K/mm3 RBC 5.17 H (3.65-5.03) M/mm3 Hgb 14.0 (11.8-15.2) gm/dl Hct 44.1 (35.5-45.6) % Plt Count 215 (140-440) K/mm3 Lymph # (Auto) 1.9 (1.2-5.4) K/mm3 [place] # (Auto) 1.2 H (0.0-0.8) K/mm3 Eos # (Auto) 1.0 H (0.0-0.4) K/mm3 Baso # (Auto) 0.1 (0.0-0.1) K/mm3 Comprehensive Metabolic Panel 04/02/21 Range/Units 06:36 Sodium 133 L (137-145) mmol/L Potassium 4.4 (3.6-5.0) mmol/L Chloride 98.5 (98-107) mmol/L Carbon Dioxide 24 (22-30) mmol/L BUN 13 (9-20) mg/dL Creatinine 0.9 (0.8-1.3) mg/dL Glucose 112 H (75-100) mg/dL Calcium 8.4 (8.4-10.2) mg/dL - Imaging and Cardiology Echo: report reviewed Cardiac cath: report reviewed (lt main patent, lad mid 95%, diagonal 1 and 2 osital 90%, lcx patent, om1 60%, rca mid 30% normal lv function lvedp 30 mm hg ) - Telemetry EKG Rhythm: Sinus Rhythm - EKG Sinus rhythms and dysrhythmias: sinus rhythm Repolarization changes or abnormalities: nonspecific abnormality, ST segment, and/or T wave
[2021-04-02] MEDS: INSULIN LISPRO 100 UNIT/ML SUB-Q SCH ×2 (15:06→18:05)
[2021-04-02] MEDS: carvediloL 6.25 MG TAB PO SCH ×2 (17:07→23:32)
[2021-04-02] MEDS: CLOPIDOGREL 75 MG TAB PO SCH (17:07)
[2021-04-02] MEDS: SENNOSIDES/DOCUSATE SODIUM 8.6/50 MG TAB PO SCH ×2 (17:07→23:31)
[2021-04-02] MEDS: FAMOTIDINE 20 MG TAB PO SCH ×2 (17:08→23:32)
[2021-04-02] MEDS: CYCLOBENZAPRINE 10 MG TAB PO SCH ×2 (17:08→23:30)
[2021-04-02] MEDS: ASPIRIN 81 MG TAB CHEW PO SCH (17:19)
[2021-04-02] MEDS: POTASSIUM CHLORIDE ER 20 MEQ TAB PO SCH (17:19)
[2021-04-02] MEDS: LISINOPRIL 5 MG TAB PO SCH (17:19)
[2021-04-02] MEDS ORDERED: SIMETHICONE 80 MG CHEW TAB PO PRN (18:00)
[2021-04-02] MEDS: traMADol 50 MG TAB PO PRN ×2 (18:43→23:31)
[2021-04-02] MEDS: AZITHROMYCIN 250 MG TAB PO SCH (23:46)
[2021-04-02] MEDS: cefTRIAXone/NS 2 GM/100 ML 2 GM/100 ML BAG IV SCH (23:47)
[2021-04-03] MEDS: INSULIN LISPRO 100 UNIT/ML SUB-Q SCH ×3 (00:07→13:42)
[2021-04-03 06:26] LABS: Hematocrit 43.5 % (35.5-45.6); Hemoglobin 13.5 gm/dl (11.8-15.2); Mean Corpuscular HGB Conc 31 % (32-34); Mean Corpuscular Volume 86 fl (84-94); Platelet Count 238 K/mm3 (140-440); Red Blood Count 5.07 M/mm3 (3.65-5.03); Red Cell Distribution Width 14.4 % (13.2-15.2)
[2021-04-03 06:44] LABS: BUN/Creatinine Ratio 14; Blood Urea Nitrogen 15 mg/dL (9-20); Calcium 8.3 mg/dL (8.4-10.2); Hemolysis Index 26
--- NOTE | 2021-04-03 08:48 | Electrocardiograph Report ---
[facility] Test Date: 2021-04-02 Test Time: 10:12:38 Pat Name: AQUILINO BOSWELL Department: Room: A476 Gender: M Director Software Development: JORDANA : 1960 Requested By: SUSY CONLEY Order Number: [id number] Reading MD: Kemar Hurtado Measurements Intervals [place] Rate: 51 P: 27 MO: 211 QRS: 36 QRSD: 94 T: 258 QT: 506 QTc: 465 Interpretive Statements Sinus rhythm Prolonged MO interval Repol abnrm, prob ischemia, anterolateral lds Compared to ECG 04/02/2021 07:13:56 Early repolarization now present Possible ischemia still present Electronically Signed On 04-03-2021 8:48:17 EST by Kemar Hurtado
--- NOTE | 2021-04-03 10:05 | Discharge Summary ---
Providers - Providers Date of Admission: 03/30/21 18:29 Date of discharge: 04/03/21 Attending physician: LESTER BYRNES MD 03/30/21 Consult to Cardiac Rehabilitation [CONS] Routine Reason For Exam: Phase I 03/30/21 18:34 Consult to Cardiology [CONS] Routine Consulting Provider: JOANNE MERINO Reason For Exam: chf/NSTEMI 04/01/21 08:36 Consult to Cardiac Rehabilitation [CONS] Routine Reason For Exam: Cardiac Rehab Evaluation Hospitalization Reason for admission: chest pain Condition: Stable Hospital course: HPI: 60 YO Male with Obesity Hypoventilation Syndrome, DM, HTN, HLD, IA, OA Metabolic Syndrome presents to ED for evaluation. Patient reports "my chest is hurting and I do not feel good". Patient states that he has experienced chest pain over the past 2 days with intermittent but persistently worsening symptoms over the same timeframe. Patient states that pain is 5/10, intermittent but now has become more constant, substernal, worsened with exertion, relieved with rest, nonradiating, relieved with nitro. Associated with shortness of breath. Patient acknowledges decreased exercise tolerance, fatigue, malaise, diminished sense of smell, diminished sense of taste. EMS was notified and upon arrival the patient was found to be in distress and subsequently transported to [facility] for further c are and evaluation of the aforementioned symptoms. The patient was seen and evaluated in the emergency department. All lab and imaging studies reviewed. Patient found to have laboratory findings consistent with NSTEMI and was initiated on therapeutic anticoagulation and admitted to [facility]. Chest x-ray revealed bilateral pneumonia complicated by sepsis. Patient admitted to [facility] and initiated on sepsis protocol as well as pneumonia protocol and coronavirus protocol. Prior admission on June 19, 2013 reviewed. All medication listed at time of admission has been reconciled. Advanced care planning conducted in ED. Admitted to [facility]. Hospital course: 03/31: Continue current management. Discussed with cardiology team patient will need to be ruled out for Covid prior to invasive procedure to evaluate for non- ST elevated IA. Patient reports that he had an IA few years ago was compliant with his aspirin although did miss 1 or 2 days in the recent weeks. He states that he was intolerable off statin therapy due to generalized body pain from the medication has not reported any at this time. For now continue appropriate goal-directed medical therapy. Clinically appears stable also did discuss with her [place] physicians due to patient's current ongoing chest pain not stable for transfer. Will defer to cardiology if nitro drip will be initiated if patient's pain continues. No clear etiology for initial leukocytosis although continued could be secondary to initiated steroid therapy. Patient has no fever at this time, cultures remain negative. 04/01: Staged cardiac cath/PCI for tomorrow morning. D/w Dr. Hurtado difficulty during cath due to spasm, will attempt via groin access tomorrow. on encounter overlying TR band, no bleeding. No complaints. 04/02: Cath findings noted. TIFFANY to LAD. Initiated on DAPT. Agree with addition of imdur and hydralazine. Will continue to follow along. Possible d/c in next 24- 48 hrs. 04/03: Juan C Luna was admitted for chest pain due to non-ST elevation myocardial infarction. Patient was initially treated with heparin and nitro drip. Cardiac catheterization revealed 95% blockage in diagonal 1 of LAD. LAD was subsequent ly stented successfully. Patient was initiated on dual antiplatelet therapy, beta-dewayne, ANTONIA inhibitor, statin, imdur. Postprocedure patient was symptom- free. Echocardiogram this admission demonstrated ejection fraction 45 to 50% with hypokinesis in the apex wall. Furthermore patient stay was complicated by finding of bilateral pneumonia. Pneumonia believed to be due to community- acquired pneumonia. Patient Covid PCR was negative during his stay here. Patient will be discharged home with prescriptions for aspirin 81 mg p.o. daily, Plavix 75 mg p.o. nightly, Coreg 6.25 mg p.o. twice daily, Imdur ER 30 mg p.o. daily, atorvastatin 40 mg p.o. nightly, lisinopril 5 mg p.o. daily, Zithromax 250 mg daily x3 days. 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. Assessment and Plan # NSTEMI (non-ST elevated myocardial infarction) Current Visit: Yes Status: Acute Plan to address problem: ACS protocol: Serial cardiac enzymes, EKG, telemetry, therapeutic Lovenox, cardiology team consulted, telemetry monitoring. Int cardilogy unable to complete pci of lad via radial secondary to spasm, staged groin approach on 04/02. Cardiac cath 04/01/2021-left main patent, LAD proximal patent, mid 95% diagonal 1 ostial 90%, mid stent patent. Diagonal 2 ostial 95%, circumflex patent, OM1 mid 60%, RCA mid 30%, normal LV function with elevated left end-diastolic pressure unable to complete pci of lad via radial secondary to tourtisty and spasm. Patient will have staged PCI of LAD patient loaded with Plavix 200 mg Cardiac cath 04/02/2021-successful PCI of LAD across diagonal 1 with a drug- eluting stent. Successful PCI of OM1 with drug-eluting stent left main pain, circumflex contained. Continue DAPT, Statin, BB. Noted addition of Imdur # HFrEF Current Visit: Yes Status: Acute Qualifiers: Heart failure chronicity: acute Qualified Code(s): I50.31 - Acute diastolic (congestive) heart failure Plan to address problem: Echo 03/30/2021-EF 45 to 50%. Hypokinesis in the apex wall. No left ventricular thrombus noted on the study. Right ventricular systolic function. BB, ANTONIA-i. Blood pressure control, thyroid panel, magnesium level, echocardiogram ordered and pending at time of admission, BNP, afterload reduction. # Sepsis POA (improving) Current Visit: Yes Status: Acute Plan to address problem: Sepsis protocol: Chest x-ray, CBC, CMP, urinalysis, IV antibiotic therapy, serial lactic acid level, IV fluid resuscitation therapy, maintain mean arterial pressure greater than equal to 65. #Pneumonia (improving) Current Visit: Yes Status: Acute Plan to address problem: Pneumonia protocol: Chest x-ray, CBC, CMP, supplemental oxygen, nebulizer therapy, IV antibiotic therapy, pulmonary toilet, blood culture. # Suspected 2019 novel coronavirus infection Current Visit: Yes Status: Acute Plan to address problem: RT PCR negative Coronavirus protocol: Supplemental oxygen, IV antibiotic therapy, IV steroid therapy, vitamin C therapy, vitamin C therapy, zinc therapy, therapeutic Lovenox, pulmonary toilet. Prone positioning while in bed as per staff capability. # Obesity hypoventilation syndrome Current Visit: Yes Status: Acute Plan to address problem: Balanced diet, increase physical activity at discharge, outpatient pulmonary follow-up for sleep study. CPAP nightly. # CAD Current Visit: Yes Status: Acute Plan to address problem: ASA, statin, BB # Essential HTN Current Visit: Yes Status: Acute Plan to address problem: BB, hydralazine, antonia-i # DVT prophylaxis Current Visit: Yes Status: Acute Plan to address problem: SCD to bilateral lower extremities while in bed, therapeutic anticoagulation. # Advance care planning Current Visit: Yes Status: Acute Plan to address problem: Disease education conducted, care plan discussed, diagnosis discussed, prognosis discussed, patient is full code. Patient acknowledges understanding and agreement with care plan, +30 minutes. Disposition: 01 HOME / SELF CARE / HOMELESS Final Discharge Diagnosis (Prints w/discharge instructions): NSTEMI, Community Acquired Pneumonia Time spent for discharge: 35 Core Measure Documentation - Palliative Care Palliative Care/ Comfort Measures: Not Applicable - Core Measures Any of the following diagnoses?: acute IA - Acute IA Discharge Requirements Aspirin at discharge: Yes ANTONIA/ARB for LVSD if EF <40%: Yes Beta dewayne at discharge: Yes Statin for LDL = or >100 mg/dl on DC: Yes Exam - Physical Exam Narrative exam: - Physical exam Narrative exam: VITAL SIGNS: Reviewed. GENERAL: The patient appears normally developed, morbidly obese vital signs as documented. HEAD: No signs of head trauma. EYES: Pupils are equal. Extraocular motions intact. EARS: Hearing grossly intact. MOUTH: Oropharynx is normal. NECK: No adenopathy, no JVD. CHEST: Chest with clear breath sounds bilaterally. No wheezes, rales, or rhonchi. CARDIAC: Regular rate and rhythm. S1 and S2, without murmurs, gallops, or rubs. VASCULAR: No Edema. Peripheral pulses normal and equal in all extremities. ABDOMEN: Soft, non tender and non distended. No rebound or guarding, and no masses palpated. Bowel Sounds normal. MUSCULOSKELETAL: Good range of motion of all major joints. Extremities without clubbing, cyanosis or edema. NEUROLOGIC EXAM: Alert and oriented x 3 No focal sensory or strength deficits. Speech normal. Follows commands. PSYCHIATRIC: Mood normal. SKIN: detail exam as documented in skin assessment. TR band on right wrist. No overt bleeding. some bruising noted. - Constitutional Vitals: Temp Pulse Resp BP Pulse Ox 98.3 F 57 L 24 116/60 100 04/03/21 08:08 04/03/21 08:08 04/03/21 08:08 04/03/21 08:08 04/03/21 08:08 Plan Plan of Treatment: Juan C Luna was admitted for chest pain due to non-ST elevation myocardial infarction. Patient was initially treated with heparin and nitro drip. Cardiac catheterization revealed 95% blockage in diagonal 1 of LAD. LAD was subsequen tly stented successfully. Patient was initiated on dual antiplatelet therapy, beta-dewayne, ANTONIA inhibitor, statin, imdur. Postprocedure patient was symptom- free. Echocardiogram this admission demonstrated ejection fraction 45 to 50% with hypokinesis in the apex wall. Furthermore patient stay was complicated by finding of bilateral pneumonia. Pneumonia believed to be due to community- acquired pneumonia. Patient Covid PCR was negative during his stay here. Patient will be discharged home with prescriptions for aspirin 81 mg p.o. daily, Plavix 75 mg p.o. nightly, Coreg 6.25 mg p.o. twice daily, Imdur ER 30 mg p.o. daily, atorvastatin 40 mg p.o. nightly, lisinopril 5 mg p.o. daily, Zithromax 250 mg daily x3 days. 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. Follow up with: ARCADIO OTTO [Other] - 3-5 Days Prescriptions: AtorvaSTATin [Lipitor] 40 mg PO QHS 30 Days #30 tablet Aspirin [Aspirin BABY CHEW TAB] 81 mg PO QDAY 30 Days #30 tab.chew carvediloL [Coreg] 6.25 mg PO BID 30 Days #60 tablet ISOSORBIDE MONOnitrate [Imdur ER] 30 mg PO QDAY 30 Days #30 tablet Clopidogrel [Plavix] 75 mg PO QPM 30 Days #30 tablet lisinopriL [Zestril TAB] 5 mg PO QDAY 30 Days #30 tablet Azithromycin [Zithromax TAB] 250 mg PO Q24H 3 Days #3 tablet
--- NOTE | 2021-04-03 11:39 | Progress Note ---
Assessment and Plan Patient is [id number]-year-old male past medical history of coronary artery disease s/p AL, hypertension, diabetes, hyperlipidemia, obesity presents with a complaint of chest pain x2-day prior to admission NSTEMI CAD s/p PCI PNA Leukocytosis HTN HLD Obesity Noncompliance Cardiac cath 04/02/2021-successful PCI of LAD across diagonal 1 with a drug- eluting stent. Successful PCI of OM1 with drug-eluting stent left main pain, circumflex contained. Continue dual antiplatelet therapy Cardiac cath 04/01/2021-left main patent, LAD proximal patent, mid 95% diagonal 1 ostial 90%, mid stent patent. Diagonal 2 ostial 95%, circumflex patent, OM1 mid 60%, RCA mid 30%, normal LV function with elevated left end-diastolic pressure unable to complete pci of lad via radial secondary to tourtisty and spasm. Patient will have staged PCI of LAD patient loaded with Plavix 200 mg Echo 03/30/2021-EF 45 to 50%. Hypokinesis in the apex wall. No left ventricular thrombus noted on the study. Right ventricular systolic function. Plan: Echo and cath results noted above Continue DAPT theray with asa and Plavix, Contnue Lipitor 40 mg p.o. nightly Coreg 6.25 mg p.o. twice daily and lisinopril 5 mg p.o. daily, Imdur 30 mg p.o. daily Patient with hypotensive we will stop hydralazine 25 mg p.o. 3 times daily Cardiac status stable for discharge Patient should follow-up with your [place] [employer] audiovisual production specialist in 1 to 2 weeks after discharge Patient seen in conjunction with Dr. Hurtado who agrees with this plan of care - Patient Problems (1) Chest pain, precordial Current Visit: Yes Status: Acute (2) Elevated troponin Current Visit: Yes Status: Acute (3) Leukocytosis Current Visit: Yes Status: Acute Qualifiers: Leukocytosis type: unspecified Qualified Code(s): D72.829 - Elevated white blood cell count, unspecified (4) NSTEMI (non-ST elevated myocardial infarction) Current Visit: Yes Status: Acute (5) Obesity hypoventilation syndrome Current Visit: Yes Status: Chronic (6) CAD (coronary artery disease) Current Visit: No Status: Chronic Qualifiers: Coronary Disease-Associated Artery/Lesion type: [place] artery Associated angina: with unstable angina (7) Diabetes mellitus type 2 in obese Onset Date: 06/19/13 Current Visit: No Status: Chronic (8) HLD (hyperlipidemia) Current Visit: No Status: Chronic Qualifiers: Hyperlipidemia type: mixed hyperlipidemia Qualified Code(s): E78.2 - Mixed hyperlipidemia (9) HTN (hypertension) Current Visit: No Status: Chronic (10) Obesities, morbid Onset Date: 06/20/13 Current Visit: No Status: Chronic Subjective Date of service: 04/03/21 Principal diagnosis: nstemi Interval history: Patient has been transferred to fourth floor. Patient resting in bed in no acute distress. Patient reports being chest pain-free Patient sinus 84 monitor with no events Objective Vital Signs Temp Pulse Resp BP BP Pulse Ox 04/03/21 08:08 98.3 F 57 L 24 116/60 100 04/03/21 04:00 64 100/47 04/03/21 03:45 97.6 F 62 16 89/50 98 04/03/21 00:00 64 96 04/02/21 23:41 98.0 F 77 23 88/53 96 04/02/21 23:39 98.0 F 74 23 89/54 84 04/02/21 23:32 20 04/02/21 23:30 94 H 132/86 04/02/21 20:00 78 96 04/02/21 19:42 20 04/02/21 19:35 98.0 F 94 H 19 132/86 96 04/02/21 18:57 22 04/02/21 17:40 76 18 152/81 99 04/02/21 17:30 76 17 152/81 97 04/02/21 17:19 70 171/95 04/02/21 17:07 69 185/96 04/02/21 17:00 65 11 L 185/96 97 04/02/21 16:00 69 15 150/83 100 04/02/21 15:00 62 21 165/76 95 04/02/21 14:00 60 22 150/81 98 04/02/21 13:42 112/57 98 04/02/21 13:00 59 L 14 159/72 98 04/02/21 12:20 61 14 174/90 96 04/02/21 12:00 57 L 14 163/87 96 04/02/21 11:40 77 182/98 - Physical Examination General: Appears Well HEENT: Positive: PERRL, Normocephaly Neck: Positive: trachea midline Cardiac: Positive: Reg Rate and Rhythm Lungs: Positive: Normal Breath Sounds Neuro: Positive: Grossly Intact Abdomen: Positive: Soft, Active Bowel Sounds Skin: Negative: Rash, Suspicious Lesions, Ulceration Extremities: Present: upper extr. pulses. Absent: edema - Labs and Meds CBC 04/03/21 Range/Units 05:46 WBC 12.6 H (4.5-11.0) K/mm3 RBC 5.07 H (3.65-5.03) M/mm3 Hgb 13.5 (11.8-15.2) gm/dl Hct 43.5 (35.5-45.6) % Plt Count 238 (140-440) K/mm3 Comprehensive Metabolic Panel 04/03/21 Range/Units 05:46 Sodium 136 L (137-145) mmol/L Potassium 4.2 (3.6-5.0) mmol/L Chloride 100.5 (98-107) mmol/L Carbon Dioxide 24 (22-30) mmol/L BUN 15 (9-20) mg/dL Creatinine 1.1 (0.8-1.3) mg/dL Glucose 128 H (75-100) mg/dL Calcium 8.3 L (8.4-10.2) mg/dL - Imaging and Cardiology Echo: report reviewed Cardiac cath: report reviewed (lt main patent, lad mid 95%, diagonal 1 and 2 osital 90%, lcx patent, om1 60%, rca mid 30% normal lv function lvedp 30 mm hg ) - Telemetry EKG Rhythm: Sinus Rhythm - EKG Sinus rhythms and dysrhythmias: sinus rhythm Repolarization changes or abnormalities: nonspecific abnormality, ST segment, a nd/or T wave
[2021-04-03 12:21] VITALS: BP 108/64
--- NOTE | 2021-04-03 13:31 | Electrocardiograph Report ---
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
--- NOTE | 2021-04-03 13:32 | Electrocardiograph Report ---
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
== END 2021-04-03 16:10 | disposition home or self-care (01) | DRG 853 ==
LOC: ED 14:07 → IMCU 18:29 → 4A 04-02 18:53
PROVIDERS: ADMIT Internal Medicine; ATTEND Internal Medicine
PROC: 5A09457 Assistance with Respiratory Ventilation, 24-96 Consecutive Hours, Continuous Positive Airway Pressure (ICD-10-PCS; 2021-03-31)
PROC: 4A023N7 Measurement of Cardiac Sampling and Pressure, Left Heart, Percutaneous Approach (ICD-10-PCS; 2021-04-01)
PROC: B2111ZZ Fluoroscopy of Multiple Coronary Arteries using Low Osmolar Contrast (ICD-10-PCS; 2021-04-01)
PROC: B2151ZZ Fluoroscopy of Left Heart using Low Osmolar Contrast (ICD-10-PCS; 2021-04-01)
PROC: 027135Z Dilation of Coronary Artery, Two Arteries with Two Drug-eluting Intraluminal Devices, Percutaneous Approach (ICD-10-PCS; principal; 2021-04-02)
DX: A41.9 Sepsis, unspecified organism (principal); I21.4 Non-ST elevation (NSTEMI) myocardial infarction; J18.9 Pneumonia, unspecified organism; I50.33 Acute on chronic diastolic (congestive) heart failure; E66.2 Morbid (severe) obesity with alveolar hypoventilation; Z68.44 Body mass index [BMI] 60.0-69.9, adult; Z20.822 Contact with and (suspected) exposure to COVID-19; I11.0 Hypertensive heart disease with heart failure; E11.9 Type 2 diabetes mellitus without complications; E78.2 Mixed hyperlipidemia; I25.10 Atherosclerotic heart disease of native coronary artery without angina pectoris; Z91.19 Patient's noncompliance with other medical treatment and regimen; Z79.82 Long term (current) use of aspirin; Z79.899 Other long term (current) drug therapy; Z79.84 Long term (current) use of oral hypoglycemic drugs; Z83.3 Family history of diabetes mellitus; Z82.49 Family history of ischemic heart disease and other diseases of the circulatory system
CPT/HCPCS: 36415; 71046; 71275; 80048; 80053; 80061; 82728; 82962; 83615; 83880; 84145; 84484; 85025; 85027; 85379; 85520; 85610; 85730; 86140; 86850; 86900; 86901; 87641; 90686; 90732; 92920; 92928; 92929; 92978; 93005; 93010; 93306; 93458; 94660; G0378; J1815; J3490; Q9967; C1725; C1753; C1769; C1874; C1887; C1894; C9600; C9601; J0456; J0461; J0583; J0696; J1644; J1650; J2250; J2270; J2405; J3010; J7040; U0003